=== PATIENT | male | born 1940 | race Caucasian/White ===

== ENCOUNTER 2016-08-30 08:00 | Outpatient (CLI) | payer MEDICARE ==
[2016-08-30 19:22] LABS: PSA FREE 0.401 ng/mL (0.16-2.81)
[2016-08-30 19:23] LABS: PSA TOTAL 1.514 ng/mL (0.000-2.000)
== END 2016-08-30 23:59 ==
LOC: LAB.R 08:00
PROVIDERS: ATTEND Internal Medicine
DX: R97.20 Elevated prostate specific antigen [PSA] (principal)
CPT/HCPCS: 84154

== ENCOUNTER 2016-10-13 08:39 | Outpatient (CLI) | payer MEDICARE ==
[2016-10-13 12:54] LABS: BASOPHILS # (AUTO) 0.1 10^3/uL (0.0-0.1); BASOPHILS % (AUTO) 0.8 %; EOSINOPHILS # (AUTO) 0.2 10^3/uL (0.0-0.7); EOSINOPHILS % (AUTO) 3.2 %; HCT - HEMATOCRIT 41.3 % (42.0-52.0); HGB - HEMOGLOBIN 13.8 g/dL (14.0-18.0); LYMPHOCYTES # (AUTO) 1.4 10^3/uL (1.5-3.5); LYMPHOCYTES % (AUTO) 22.5 %; MEAN CORPUSCULAR HEMOGLOBIN 32.2 pg (27.0-31.0); MEAN CORPUSCULAR HGB CONC 33.4 g/dL (32.0-36.0); MEAN CORPUSCULAR VOLUME 96.4 fL (80.0-94.0); MEAN PLATELET VOLUME 12.4 fL (7.4-11.4); MONOCYTES # (AUTO) 0.5 10^3/uL (0.0-1.0); MONOCYTES % (AUTO) 8.5 %; NEUTROPHILS # (AUTO) 4.1 10^3/uL (1.5-6.6); NUCLEATED RED BLOOD CELLS AUTO 0.1 /100WBC; RED BLOOD COUNT 4.28 10^6/uL (4.70-6.10); RED CELL DISTRIBUTION WIDTH 12.7 % (12.0-15.0); UNCORRECTED WHITE BLOOD COUNT 6.3 x10^3/uL; WHITE BLOOD COUNT 6.3 x10^3/uL (4.8-10.8)
[2016-10-13 13:12] LABS: ALBUMIN/GLOBULIN RATIO 1.7 (1.0-2.2); BILIRUBIN,TOTAL 0.6 mg/dL (0.2-1.0); BUN - BLOOD UREA NITROGEN 23 mg/dL (6-20); CALCIUM 9.3 mg/dL (8.5-10.3); CARBON DIOXIDE - CO2 31 mmol/L (21-32); CHLORIDE 101 mmol/L (101-111); CHOL/HDL RATIO 2.5 (<5.0); CHOLESTEROL 152 mg/dL; CREATININE 0.9 mg/dL (0.6-1.2); GFR - MDRD 82 (>89); GLUCOSE 98 mg/dL (70-100); HDL CHOLESTEROL 62 mg/dL; LDL/HDL RATIO 1.1 (<3.6); POTASSIUM 4.2 mmol/L (3.5-5.0); SODIUM 139 mmol/L (135-145); TOTAL PROTEIN 6.7 g/dL (6.7-8.2); TRIGLYCERIDES 103 mg/dL; VLDL CHOLESTEROL 21 mg/dL
[2016-10-13 13:17] LABS: PSA FREE 0.35 ng/mL (0.16-2.81)
[2016-10-13 13:18] LABS: PSA TOTAL 1.71 ng/mL (0.000-2.000)
== END 2016-10-13 08:40 | disposition home or self-care (01) ==
LOC: LAB.R 08:39
PROVIDERS: ATTEND Internal Medicine
DX: E78.2 Mixed hyperlipidemia (principal); I25.10 Atherosclerotic heart disease of native coronary artery without angina pectoris; R97.20 Elevated prostate specific antigen [PSA]; Z79.899 Other long term (current) drug therapy
CPT/HCPCS: 80053; 80061; 84154; 84443; 85025

== ENCOUNTER 2017-01-09 14:53 | Outpatient (CLI) | payer MEDICARE | END 2017-01-09 14:54 | disposition home or self-care (01) | LOC: SC 14:53 | PROVIDERS: ATTEND Internal Medicine Pulmonary Disease | DX: G47.00 Insomnia, unspecified (principal); R53.83 Other fatigue | CPT/HCPCS: 99203; G0463; 99212 ==

== ENCOUNTER 2017-02-17 22:25 | Outpatient (CLI) | payer MEDICARE | END 2017-02-17 22:26 | disposition home or self-care (01) | LOC: SC 22:25 | PROVIDERS: ATTEND Internal Medicine Pulmonary Disease | DX: G47.61 Periodic limb movement disorder (principal) | CPT/HCPCS: 95810 ==

== ENCOUNTER 2017-03-09 10:26 | Outpatient (CLI) | payer MEDICARE | END 2017-03-09 10:27 | disposition home or self-care (01) | LOC: SC 10:26 | PROVIDERS: ATTEND Specialist | DX: G47.61 Periodic limb movement disorder (principal) | CPT/HCPCS: 99214; G0463; 99212 ==

== ENCOUNTER 2017-10-17 08:05 | Outpatient (CLI) | payer MEDICARE ==
[2017-10-17 11:01] LABS: BASOPHILS % (AUTO) 0.7 %; EOSINOPHILS # (AUTO) 0.3 10^3/uL (0.0-0.7); EOSINOPHILS % (AUTO) 3.6 %; HGB - HEMOGLOBIN 13.3 g/dL (14.0-18.0); LYMPHOCYTES # (AUTO) 1.7 10^3/uL (1.5-3.5); LYMPHOCYTES % (AUTO) 23.5 %; MEAN CORPUSCULAR HEMOGLOBIN 32.6 pg (27.0-31.0); MEAN CORPUSCULAR HGB CONC 32.7 g/dL (32.0-36.0); MEAN CORPUSCULAR VOLUME 99.5 fL (80.0-94.0); MEAN PLATELET VOLUME 11.9 fL (7.4-11.4); MONOCYTES # (AUTO) 0.6 10^3/uL (0.0-1.0); MONOCYTES % (AUTO) 8.6 %; NEUTROPHILS # (AUTO) 4.5 10^3/uL (1.5-6.6); NEUTROPHILS % (AUTO) 63.6 %; PLT - PLATELET COUNT 163 10^3/uL (130-450); RED BLOOD COUNT 4.09 10^6/uL (4.70-6.10); RED CELL DISTRIBUTION WIDTH 12.9 % (12.0-15.0); WHITE BLOOD COUNT 7.1 x10^3/uL (4.8-10.8)
[2017-10-17 11:15] LABS: ALBUMIN 3.8 g/dL (3.2-5.5); ALBUMIN/GLOBULIN RATIO 1.3 (1.0-2.2); ALKALINE PHOSPHATASE 53 IU/L (42-121); ALT ALANINE AMINOTRANSFERASE 16 IU/L (10-60); AST ASPARTATE AMINOTRANSFERASE 17 IU/L (10-42); BILIRUBIN,TOTAL 0.5 mg/dL (0.2-1.0); BUN - BLOOD UREA NITROGEN 34 mg/dL (6-20); CARBON DIOXIDE - CO2 30 mmol/L (21-32); CHLORIDE 101 mmol/L (101-111); CHOL/HDL RATIO 2.1 (<5.0); CHOLESTEROL 150 mg/dL; GFR - MDRD 73 (>89); GLUCOSE 100 mg/dL (70-100); HDL CHOLESTEROL 70 mg/dL; LDL CHOLESTEROL,CALCULATED 65 mg/dL; LDL/HDL RATIO 0.9 (<3.6); SODIUM 137 mmol/L (135-145); TOTAL PROTEIN 6.7 g/dL (6.7-8.2); VLDL CHOLESTEROL 15 mg/dL
== END 2017-10-17 08:06 | disposition home or self-care (01) ==
LOC: LAB.R 08:05
PROVIDERS: ATTEND Internal Medicine
DX: K21.9 Gastro-esophageal reflux disease without esophagitis (principal); E53.8 Deficiency of other specified B group vitamins; I25.10 Atherosclerotic heart disease of native coronary artery without angina pectoris
CPT/HCPCS: 80053; 80061; 83721; 85025

== ENCOUNTER 2017-11-27 11:40 | Outpatient (CLI) | payer MEDICARE ==
[2017-11-27 19:08] LABS: MEAN RETIC VALUE 117.3; RED BLOOD COUNT 4.18 10^6/uL (4.70-6.10)
[2017-11-27 19:50] LABS: FERRITIN 34.7 ng/mL (23.9-336.2)
== END 2017-11-27 11:41 | disposition home or self-care (01) ==
LOC: LAB.N 11:40
PROVIDERS: ATTEND Internal Medicine
DX: N40.0 Benign prostatic hyperplasia without lower urinary tract symptoms (principal); D64.9 Anemia, unspecified
CPT/HCPCS: 36415; 82607; 82728; 83010; 84153; 85044; 86880

== ENCOUNTER 2018-01-22 10:08 | Day surgery (SDC) | payer MEDICARE ==
[2018-01-22] MEDS ORDERED: LACTATED RINGERS 1,000 ML IV ONE (10:25)
[2018-01-22] MEDS ORDERED: MIDAZOLAM 2 MG/2 ML VIAL IVP ONE (11:53)
[2018-01-22] MEDS ORDERED: fentaNYL 250 MCG/5 ML VIAL IVP ONE (11:53)
[2018-01-22 13:44] VITALS: BP 129/60
== END 2018-01-22 10:09 | disposition home or self-care (01) ==
LOC: SDS 10:08
PROVIDERS: ATTEND Surgery
PROC: 0DBH8ZZ Excision of Cecum, Via Natural or Artificial Opening Endoscopic (ICD-10-PCS; principal; 2018-01-22 11:45)
DX: D64.9 Anemia, unspecified (principal); D12.0 Benign neoplasm of cecum; K57.30 Diverticulosis of large intestine without perforation or abscess without bleeding; K64.8 Other hemorrhoids; K21.9 Gastro-esophageal reflux disease without esophagitis; F17.210 Nicotine dependence, cigarettes, uncomplicated; G25.81 Restless legs syndrome; Z79.82 Long term (current) use of aspirin; Z79.899 Other long term (current) drug therapy; Z95.5 Presence of coronary angioplasty implant and graft
CPT/HCPCS: 45380; J3010; J7120

== ENCOUNTER 2018-03-13 14:12 | Outpatient (CLI) | payer MEDICARE ==
--- NOTE | 2018-03-13 14:53 | XRAY Report ---
Reason: WHEEZING Procedure Date: 03/13/2018 Accession Number: [id number] / [id number] Procedure: XR - Chest 2 View X-Ray CPT Code: 55218 FULL RESULT: EXAM: CHEST RADIOGRAPHY EXAM DATE: 03/13/2018 02:44 PM. CLINICAL HISTORY: WHEEZING. COMPARISON: None. TECHNIQUE: 2 views. FINDINGS: Lungs/Pleura: No focal opacities evident. No pleural effusion. No pneumothorax. Normal volumes. Mediastinum: The heart size is normal. There is mild to moderate aortic arch atherosclerotic calcification. Other: None. IMPRESSION: Negative for an acute cardiopulmonary abnormality. RADIA
== END 2018-03-13 14:13 | disposition home or self-care (01) ==
LOC: DI 14:12
PROVIDERS: ATTEND Physician Assistant Medical
DX: R06.2 Wheezing (principal)
CPT/HCPCS: 71046

== ENCOUNTER 2018-04-25 11:56 | Outpatient (CLI) | payer MEDICARE ==
--- NOTE | 2018-04-25 13:00 | XRAY Report ---
Reason: TOBACCO ABUSE, CONTINUOUS Procedure Date: 04/25/2018 Accession Number: [id number] / [id number] Procedure: XR - Chest 2 View X-Ray CPT Code: 85510 FULL RESULT: EXAM: CHEST RADIOGRAPHY EXAM DATE: 04/25/2018 12:27 PM. CLINICAL HISTORY: Tobacco abuse, continuous. COMPARISON: CHEST 2 VIEW 03/13/2018 2:37 PM. TECHNIQUE: 2 views. FINDINGS: Lungs/Pleura: No focal opacities evident. No pleural effusion. No pneumothorax. Normal volumes. Mediastinum: Heart and mediastinal contours are stable with mild calcifications of the aortic arch. Apparent interval enlargement of the cardiac silhouette is felt to be differences in technique. Other: None. IMPRESSION: No acute cardiopulmonary abnormality. RADIA
== END 2018-04-25 11:57 | disposition home or self-care (01) ==
LOC: DI 11:56
PROVIDERS: ATTEND Physician Assistant Medical
DX: F17.200 Nicotine dependence, unspecified, uncomplicated (principal); R06.2 Wheezing; R05 Cough
CPT/HCPCS: 71046

== ENCOUNTER 2018-04-29 12:58 | Outpatient (CLI) | payer MEDICARE ==
[2018-04-29] MEDS ORDERED: ALBUTEROL NEB 2.5 MG/3 ML INH ONE (13:30)
== END 2018-04-29 12:59 | disposition home or self-care (01) ==
LOC: RT 12:58
PROVIDERS: ATTEND Physician Assistant Medical
DX: R06.2 Wheezing (principal); F17.200 Nicotine dependence, unspecified, uncomplicated
CPT/HCPCS: 94060; 94664

== ENCOUNTER 2018-11-05 07:28 | Outpatient (CLI) | payer MEDICARE ==
[2018-11-05 08:17] LABS: ALBUMIN 3.9 g/dL (3.2-5.5); ALBUMIN/GLOBULIN RATIO 1.4 (1.0-2.2); ALKALINE PHOSPHATASE 65 IU/L (42-121); ALT ALANINE AMINOTRANSFERASE 14 IU/L (10-60); AST ASPARTATE AMINOTRANSFERASE 15 IU/L (10-42); BILIRUBIN,TOTAL 0.5 mg/dL (0.2-1.0); BUN - BLOOD UREA NITROGEN 28 mg/dL (6-20); CALCIUM 8.9 mg/dL (8.5-10.3); CARBON DIOXIDE - CO2 27 mmol/L (21-32); CHLORIDE 105 mmol/L (101-111); CHOL/HDL RATIO 2.3 (<5.0); CHOLESTEROL 136 mg/dL; GFR - MDRD 73 (>89); GLUCOSE 110 mg/dL (70-100); HDL CHOLESTEROL 59 mg/dL; LDL CHOLESTEROL,CALCULATED 66 mg/dL; LDL/HDL RATIO 1.1 (<3.6); SODIUM 142 mmol/L (135-145); TOTAL PROTEIN 6.7 g/dL (6.7-8.2); VLDL CHOLESTEROL 11 mg/dL
[2018-11-05 08:46] LABS: BASOPHILS % (AUTO) 0.6 %; EOSINOPHILS # (AUTO) 0.2 10^3/uL (0.0-0.7); EOSINOPHILS % (AUTO) 2.9 %; LYMPHOCYTES # (AUTO) 1.5 10^3/uL (1.5-3.5); MEAN CORPUSCULAR HEMOGLOBIN 31.1 pg (27.0-31.0); MEAN CORPUSCULAR HGB CONC 31.3 g/dL (32.0-36.0); MEAN CORPUSCULAR VOLUME 99.3 fL (80.0-94.0); MEAN PLATELET VOLUME 13.5 fL (7.4-11.4); MONOCYTES # (AUTO) 0.6 10^3/uL (0.0-1.0); MONOCYTES % (AUTO) 8.7 %; NEUTROPHILS # (AUTO) 4.3 10^3/uL (1.5-6.6); NEUTROPHILS % (AUTO) 64.5 %; PLT - PLATELET COUNT 168 10^3/uL (130-450); RED BLOOD COUNT 4.18 10^6/uL (4.70-6.10); RED CELL DISTRIBUTION WIDTH 12.4 % (12.0-15.0); WHITE BLOOD COUNT 6.7 x10^3/uL (4.8-10.8)
[2018-11-05 08:52] LABS: PSA FREE 0.44 ng/mL (0.16-2.81)
[2018-11-05 08:53] LABS: PSA TOTAL 2.1 ng/mL (0.000-2.000)
[2018-11-05 08:57] LABS: THYROID STIMULATING HORMONE 4.15 uIU/mL (0.34-5.60)
[2018-11-05 10:06] LABS: PLATELET ESTIMATE, MANUAL NORMAL (130-450,000) (NORMAL); PLATELET MORPHOLOGY RARE GIANT PLATELETS (NORMAL); RBC MORPHOLOGY (MULTIPLE) NORMAL APPEARANCE (NORMAL)
== END 2018-11-05 07:29 | disposition home or self-care (01) ==
LOC: LAB 07:28
PROVIDERS: ATTEND Nurse Practitioner
DX: E78.5 Hyperlipidemia, unspecified (principal); J44.9 Chronic obstructive pulmonary disease, unspecified; E53.8 Deficiency of other specified B group vitamins; N40.1 Benign prostatic hyperplasia with lower urinary tract symptoms
CPT/HCPCS: 36415; 80053; 80061; 82306; 82607; 83721; 84153; 84154; 84443; 85025

== ENCOUNTER 2019-02-08 08:48 | Outpatient (CLI) | payer MEDICARE | END 2019-02-08 08:49 | disposition home or self-care (01) | LOC: DI 08:48 | PROVIDERS: ATTEND Family Medicine | DX: J44.9 Chronic obstructive pulmonary disease, unspecified (principal); I25.10 Atherosclerotic heart disease of native coronary artery without angina pectoris | CPT/HCPCS: 93306 ==

== ENCOUNTER 2019-03-18 09:53 | Outpatient (CLI) | payer MEDICARE | END 2019-03-18 09:54 | disposition home or self-care (01) | LOC: LAB 09:53 | PROVIDERS: ATTEND Nurse Practitioner | DX: R53.83 Other fatigue (principal) | CPT/HCPCS: 36415; 82306 ==

== ENCOUNTER 2019-05-16 08:58 | Outpatient (CLI) | payer MEDICARE ==
[~2019-05-16 08:58] MED LIST: ALBUTEROL NEB 2.5 MG/3 ML INH SCH
== END 2019-05-16 08:59 | disposition home or self-care (01) ==
LOC: RT 08:58
PROVIDERS: ATTEND Nurse Practitioner
DX: J44.9 Chronic obstructive pulmonary disease, unspecified (principal)
CPT/HCPCS: 94060

== ENCOUNTER 2019-05-24 11:12 | Outpatient (CLI) | payer MEDICARE ==
--- NOTE | 2019-05-29 09:09 | XRAY Report ---
Reason: COPD Procedure Date: 05/24/2019 Accession Number: [id number] / [id number] Procedure: XR - Chest 2 View X-Ray CPT Code: 75308 Final Report FULL RESULT: EXAM: CHEST RADIOGRAPHY EXAM DATE: 05/24/2019 11:23 AM. CLINICAL HISTORY: COPD. COMPARISON: CHEST 2 VIEW 04/25/2018 12:17 PM. TECHNIQUE: 2 views. FINDINGS: The mediastinal and cardiac silhouettes are normal. The lungs are free of focal consolidation and hyperinflated. No pleural effusion or pneumothorax is seen. Degenerative changes are seen in the spine and bilateral acromioclavicular joints. There is a levoconvex thoracic curvature, unchanged. IMPRESSION: No focal consolidation. RADIA
== END 2019-05-24 11:13 | disposition home or self-care (01) ==
LOC: DI 11:12
PROVIDERS: ATTEND Nurse Practitioner
DX: J44.9 Chronic obstructive pulmonary disease, unspecified (principal)
CPT/HCPCS: 71046

== ENCOUNTER 2019-11-27 10:35 | Outpatient (CLI) | payer MEDICARE ==
[2019-11-27 18:28] LABS: BASOPHILS % (AUTO) 0.6 %; EOSINOPHILS # (AUTO) 0.2 10^3/uL (0.0-0.7); EOSINOPHILS % (AUTO) 2.1 %; HGB - HEMOGLOBIN 13.3 g/dL (14.0-18.0); LYMPHOCYTES # (AUTO) 1.5 10^3/uL (1.5-3.5); LYMPHOCYTES % (AUTO) 20.6 %; MEAN CORPUSCULAR HEMOGLOBIN 32.1 pg (27.0-31.0); MEAN CORPUSCULAR HGB CONC 31.2 g/dL (32.0-36.0); MEAN CORPUSCULAR VOLUME 102.9 fL (80.0-94.0); MEAN PLATELET VOLUME 13.7 fL (7.4-11.4); MONOCYTES # (AUTO) 0.5 10^3/uL (0.0-1.0); MONOCYTES % (AUTO) 7.5 %; NEUTROPHILS % (AUTO) 68.6 %; PLT - PLATELET COUNT 188 10^3/uL (130-450); RED BLOOD COUNT 4.14 10^6/uL (4.70-6.10); RED CELL DISTRIBUTION WIDTH 12.1 % (12.0-15.0); WHITE BLOOD COUNT 7.2 x10^3/uL (4.8-10.8)
[2019-11-27 19:02] LABS: ALBUMIN 4.1 g/dL (3.2-5.5); ALBUMIN/GLOBULIN RATIO 1.5 (1.0-2.2); ALKALINE PHOSPHATASE 61 IU/L (42-121); ALT ALANINE AMINOTRANSFERASE 20 IU/L (10-60); AST ASPARTATE AMINOTRANSFERASE 18 IU/L (10-42); BILIRUBIN,TOTAL 0.4 mg/dL (0.2-1.0); BUN - BLOOD UREA NITROGEN 23 mg/dL (6-20); CALCIUM 8.9 mg/dL (8.5-10.3); CARBON DIOXIDE - CO2 29 mmol/L (21-32); CHLORIDE 105 mmol/L (101-111); CHOL/HDL RATIO 2.4 (<5.0); CHOLESTEROL 156 mg/dL; CREATININE 0.9 mg/dL (0.6-1.2); GLUCOSE 89 mg/dL (70-100); HDL CHOLESTEROL 64 mg/dL; LDL CHOLESTEROL,CALCULATED 75 mg/dL; LDL/HDL RATIO 1.2 (<3.6); SODIUM 137 mmol/L (135-145); TOTAL PROTEIN 6.9 g/dL (6.7-8.2); VLDL CHOLESTEROL 17 mg/dL
== END 2019-11-27 23:59 | disposition home or self-care (01) ==
LOC: LAB.WCP 10:35
PROVIDERS: ATTEND Nurse Practitioner
DX: E78.5 Hyperlipidemia, unspecified (principal); J44.9 Chronic obstructive pulmonary disease, unspecified; I25.10 Atherosclerotic heart disease of native coronary artery without angina pectoris; E53.8 Deficiency of other specified B group vitamins; G47.61 Periodic limb movement disorder; K21.9 Gastro-esophageal reflux disease without esophagitis
CPT/HCPCS: 36415; 80053; 80061; 82607; 83721; 84443; 85025

== ENCOUNTER 2020-09-16 07:54 | Outpatient (CLI) | payer MEDICARE ==
[2020-09-16 12:05] LABS: BASOPHILS # (AUTO) 0.1 10^3/uL (0.0-0.1); BASOPHILS % (AUTO) 0.9 %; EOSINOPHILS # (AUTO) 0.2 10^3/uL (0.0-0.7); EOSINOPHILS % (AUTO) 2.9 %; HCT - HEMATOCRIT 41.5 % (42.0-52.0); HGB - HEMOGLOBIN 13.3 g/dL (14.0-18.0); LYMPHOCYTES # (AUTO) 1.9 10^3/uL (1.5-3.5); LYMPHOCYTES % (AUTO) 27.5 %; MEAN CORPUSCULAR HEMOGLOBIN 31.7 pg (27.0-31.0); MEAN CORPUSCULAR VOLUME 98.8 fL (80.0-94.0); MEAN PLATELET VOLUME 14.2 fL (7.4-11.4); MONOCYTES # (AUTO) 0.6 10^3/uL (0.0-1.0); MONOCYTES % (AUTO) 9.2 %; NEUTROPHILS # (AUTO) 4.2 10^3/uL (1.5-6.6); NEUTROPHILS % (AUTO) 59.2 %; PLT - PLATELET COUNT 194 10^3/uL (130-450); RED CELL DISTRIBUTION WIDTH 11.9 % (12.0-15.0)
[2020-09-16 12:28] LABS: ALBUMIN 4.1 g/dL (3.2-5.5); ALBUMIN/GLOBULIN RATIO 1.6 (1.0-2.2); ALKALINE PHOSPHATASE 57 IU/L (42-121); ALT ALANINE AMINOTRANSFERASE 12 IU/L (10-60); AST ASPARTATE AMINOTRANSFERASE 17 IU/L (10-42); BILIRUBIN,TOTAL 0.9 mg/dL (0.2-1.0); BUN - BLOOD UREA NITROGEN 31 mg/dL (6-20); CALCIUM 8.8 mg/dL (8.5-10.3); CARBON DIOXIDE - CO2 29 mmol/L (21-32); CHLORIDE 101 mmol/L (101-111); CHOL/HDL RATIO 2.6 (<5.0); CHOLESTEROL 155 mg/dL; GFR - MDRD 72 (>89); GLUCOSE 113 mg/dL (70-100); HDL CHOLESTEROL 59 mg/dL; LDL CHOLESTEROL,CALCULATED 82 mg/dL; LDL/HDL RATIO 1.4 (<3.6); POTASSIUM 4.1 mmol/L (3.5-5.0); SODIUM 139 mmol/L (135-145); TOTAL PROTEIN 6.6 g/dL (6.7-8.2); TRIGLYCERIDES 72 mg/dL; VLDL CHOLESTEROL 14 mg/dL
[2020-09-16 12:29] LABS: THYROID STIMULATING HORMONE 4.32 uIU/mL (0.34-5.60)
== END 2020-09-16 07:55 | disposition home or self-care (01) ==
LOC: LAB.N 07:54
PROVIDERS: ATTEND Internal Medicine
DX: E78.5 Hyperlipidemia, unspecified (principal); F32.9 Major depressive disorder, single episode, unspecified; I25.10 Atherosclerotic heart disease of native coronary artery without angina pectoris
CPT/HCPCS: 36415; 80053; 80061; 83721; 84443; 85025

== ENCOUNTER 2021-11-10 08:24 | Outpatient (CLI) | payer MEDICARE ==
[2021-11-10 12:00] LABS: BASOPHILS # (AUTO) 0.1 10^3/uL (0.0-0.1); BASOPHILS % (AUTO) 0.7 %; EOSINOPHILS # (AUTO) 0.2 10^3/uL (0.0-0.7); EOSINOPHILS % (AUTO) 3.3 %; HCT - HEMATOCRIT 41.8 % (42.0-52.0); HGB - HEMOGLOBIN 13.7 g/dL (14.0-18.0); LYMPHOCYTES # (AUTO) 1.6 10^3/uL (1.5-3.5); LYMPHOCYTES % (AUTO) 22.4 %; MEAN CORPUSCULAR HEMOGLOBIN 32.4 pg (27.0-31.0); MEAN CORPUSCULAR HGB CONC 32.8 g/dL (32.0-36.0); MEAN CORPUSCULAR VOLUME 98.8 fL (80.0-94.0); MEAN PLATELET VOLUME 13.8 fL (7.4-11.4); MONOCYTES # (AUTO) 0.7 10^3/uL (0.0-1.0); MONOCYTES % (AUTO) 9.4 %; NEUTROPHILS # (AUTO) 4.7 10^3/uL (1.5-6.6); NEUTROPHILS % (AUTO) 63.8 %; PLT - PLATELET COUNT 208 10^3/uL (130-450); RED BLOOD COUNT 4.23 10^6/uL (4.70-6.10); RED CELL DISTRIBUTION WIDTH 12.1 % (12.0-15.0); WHITE BLOOD COUNT 7.3 x10^3/uL (4.8-10.8)
[2021-11-10 12:34] LABS: ALBUMIN 3.8 g/dL (3.2-5.5); ALBUMIN/GLOBULIN RATIO 1.4 (1.0-2.2); ALKALINE PHOSPHATASE 65 IU/L (42-121); ALT ALANINE AMINOTRANSFERASE 11 IU/L (10-60); AST ASPARTATE AMINOTRANSFERASE 16 IU/L (10-42); BILIRUBIN,TOTAL 0.6 mg/dL (0.2-1.0); BUN - BLOOD UREA NITROGEN 26 mg/dL (6-20); CALCIUM 9.4 mg/dL (8.5-10.3); CARBON DIOXIDE - CO2 31 mmol/L (21-32); CHLORIDE 104 mmol/L (101-111); CHOL/HDL RATIO 2.4 (<5.0); CHOLESTEROL 146 mg/dL; GFR - MDRD 72 (>89); GLUCOSE 115 mg/dL (70-100); HDL CHOLESTEROL 62 mg/dL; LDL CHOLESTEROL,CALCULATED 72 mg/dL; LDL/HDL RATIO 1.2 (<3.6); POTASSIUM 4.4 mmol/L (3.5-5.0); SODIUM 139 mmol/L (135-145); TOTAL PROTEIN 6.6 g/dL (6.7-8.2); TRIGLYCERIDES 60 mg/dL; VLDL CHOLESTEROL 12 mg/dL
[2021-11-10 12:44] LABS: THYROID STIMULATING HORMONE 4.31 uIU/mL (0.34-5.60)
== END 2021-11-10 08:25 | disposition home or self-care (01) ==
LOC: LAB.N 08:24
PROVIDERS: ATTEND Internal Medicine
DX: E78.5 Hyperlipidemia, unspecified (principal); E53.8 Deficiency of other specified B group vitamins; I25.2 Old myocardial infarction; F32.A Depression, unspecified
CPT/HCPCS: 36415; 80053; 80061; 82607; 83721; 84443; 85025

== ENCOUNTER 2022-09-28 07:33 | Outpatient (CLI) | payer MEDICARE ==
[2022-09-28 11:51] LABS: ALBUMIN 3.9 g/dL (3.2-5.5); ALBUMIN/GLOBULIN RATIO 1.4 (1.0-2.2); ALKALINE PHOSPHATASE 59 IU/L (42-121); ALT ALANINE AMINOTRANSFERASE 13 IU/L (10-60); AST ASPARTATE AMINOTRANSFERASE 14 IU/L (10-42); BASOPHILS # (AUTO) 0.1 10^3/uL (0.0-0.1); BASOPHILS % (AUTO) 0.8 %; BILIRUBIN,TOTAL 0.7 mg/dL (0.2-1.0); BUN - BLOOD UREA NITROGEN 30 mg/dL (6-20); CALCIUM 8.7 mg/dL (8.5-10.3); CARBON DIOXIDE - CO2 29 mmol/L (21-32); CHLORIDE 106 mmol/L (101-111); CHOL/HDL RATIO 2.3 (<5.0); CHOLESTEROL 148 mg/dL; CREATININE 0.8 mg/dL (0.6-1.2); EOSINOPHILS # (AUTO) 0.2 10^3/uL (0.0-0.7); EOSINOPHILS % (AUTO) 2.4 %; GFR - MDRD 93 (>89); GLUCOSE 120 mg/dL (70-100); HCT - HEMATOCRIT 39.5 % (42.0-52.0); HDL CHOLESTEROL 63 mg/dL; HGB - HEMOGLOBIN 12.6 g/dL (14.0-18.0); LDL CHOLESTEROL,CALCULATED 69 mg/dL; LDL/HDL RATIO 1.1 (<3.6); LYMPHOCYTES # (AUTO) 1.6 10^3/uL (1.5-3.5); LYMPHOCYTES % (AUTO) 22.8 %; MEAN CORPUSCULAR HEMOGLOBIN 31.7 pg (27.0-31.0); MEAN CORPUSCULAR HGB CONC 31.9 g/dL (32.0-36.0); MEAN CORPUSCULAR VOLUME 99.2 fL (80.0-94.0); MEAN PLATELET VOLUME 13.8 fL (7.4-11.4); MONOCYTES # (AUTO) 0.6 10^3/uL (0.0-1.0); MONOCYTES % (AUTO) 8.9 %; NEUTROPHILS # (AUTO) 4.6 10^3/uL (1.5-6.6); NEUTROPHILS % (AUTO) 64.7 %; PLT - PLATELET COUNT 191 10^3/uL (130-450); POTASSIUM 4.1 mmol/L (3.5-5.0); RED BLOOD COUNT 3.98 10^6/uL (4.70-6.10); RED CELL DISTRIBUTION WIDTH 12.4 % (12.0-15.0); SODIUM 140 mmol/L (135-145); TOTAL PROTEIN 6.7 g/dL (6.7-8.2); TRIGLYCERIDES 78 mg/dL; VLDL CHOLESTEROL 16 mg/dL; WHITE BLOOD COUNT 7.1 x10^3/uL (4.8-10.8)
[2022-09-28 12:15] LABS: THYROID STIMULATING HORMONE 3.31 uIU/mL (0.34-5.60)
== END 2022-09-28 07:34 | disposition home or self-care (01) ==
LOC: LAB.N 07:33
PROVIDERS: ATTEND Internal Medicine
DX: E78.5 Hyperlipidemia, unspecified (principal); E53.8 Deficiency of other specified B group vitamins; F32.A Depression, unspecified
CPT/HCPCS: 36415; 80053; 80061; 82607; 83721; 84443; 85025

== ENCOUNTER 2023-02-26 10:53 | Emergency (ER) | payer MEDICARE ==
[2023-02-26] MEDS ORDERED: IPRATROPIUM/ALBUTEROL 3 ML NEB INH STA (11:46)
--- NOTE | 2023-02-26 11:54 | XRAY Report ---
PROCEDURE: Chest 1 View X-Ray INDICATIONS: SOA TECHNIQUE: One view of the chest was acquired. COMPARISON: 05/24/2019 FINDINGS: Surgical changes and devices: None. Lungs and pleura: No pleural effusions or pneumothorax. Lungs are clear. Mediastinum: Mediastinal contours appear normal. Heart size is normal. Bones and chest wall: No suspicious bony lesions. Overlying soft tissues appear unremarkable. IMPRESSION: No acute cardiopulmonary process. Reviewed by: Tosha Turk MD on 02/26/2023 11:53 AM [facility] Approved by: Tosha Turk MD on 02/26/2023 11:53 AM [facility] Station ID: [id number]
--- NOTE | 2023-02-26 12:05 | ED Physician Documentation ---
PD HPI URI - Stated complaint Stated Complaint: SOA,COUGH - Chief complaint Chief Complaint: Resp - History obtained from History obtained from: Patient - Additional information Additional information: Patient is an 82-year-old male presenting for evaluation of feeling short of air. He states that since Monday he has had a nonproductive cough. He has been using his albuterol inhaler with some improvement but feels more tight today. No fever. No chest pain. He does report smoking cigarettes but has cut down Recently. No known sick contacts. Denies abdominal symptoms, leg swelling or pain. Review of Systems Constitutional: denies: Fever Cardiac: denies: Chest pain / pressure Respiratory: reports: Dyspnea, Cough GI: denies: Abdominal Pain, Vomiting Musculoskeletal: denies: Extremity swelling PD PAST MEDICAL HISTORY - Past Medical History Cardiovascular: Hypertension, High cholesterol, [place], Other Respiratory: None Endocrine/Autoimmune: None GI: GERD : Benign prostate hypertrophy HEENT: None Psych: Depression Musculoskeletal: None - Past Surgical History Past Surgical History: Yes Cardiovascular: Cardiac catheterization HEENT: Rhinoplasty - Present Medications Home Medications: Ambulatory Orders Medication Instructions Recorded Confirmed Aspirin [Aspirin EC] 81 mg PO DAILY 01/19/18 02/26/23 Citalopram Hydrobromide [Celexa] 40 mg PO DAILY 01/19/18 02/26/23 Finasteride 5 mg PO DAILY 01/19/18 02/26/23 Metoprolol Succinate 50 mg PO BID 01/19/18 02/26/23 Nitroglycerin [Nitrostat] 0.4 mg SL Q5MIN PRN MDD 3 tabs 01/19/18 02/26/23 Omeprazole 20 mg PO DAILY 01/19/18 02/26/23 Pravastatin Sodium [Pravachol] 80 mg PO DAILY 01/19/18 02/26/23 Albuterol Sulf [Ventolin Hfa 1 - 2 puffs INH Q4HR PRN 02/26/23 02/26/23 Inhaler] Albuterol Sulf [Ventolin Hfa 1 - 2 puffs INH Q4HR PRN #1 each 02/26/23 Inhaler] Beclomethasone 80 Mcg [Qvar 80] 1 puffs INH BID 02/26/23 02/26/23 Benzonatate [Tessalon] 200 mg PO QID PRN #20 cap 02/26/23 Carbidopa [Lodosyn] 100 mg PO DAILY 02/26/23 02/26/23 Tiotropium Br/Olodaterol HCl 2 puffs IH BID 02/26/23 02/26/23 [Stiolto Respimat Inhal [place]] predniSONE [Deltasone] 60 mg PO DAILY 4 Days #12 tablet 02/26/23 - Allergies Allergies/Adverse Reactions: Allergies Allergy/AdvReac Type Severity Reaction Status Date / Time LAZ Inhibitors Allergy Unknown Verified 02/26/23 11:03 - Social History Does the pt smoke?: Yes Smoking Status: Current some day smoker Does the pt drink ETOH?: No Does the pt have substance abuse?: No PD ED PE NORMAL - General General: Alert and oriented X 3, No acute distress, Well developed/nourished - HEENT HEENT: Atraumatic, Moist mucous membranes, Pharynx benign - Neck Neck: Supple, no meningeal sign - Cardiac Cardiac: RRR, No murmur, Strong equal pulses - Respiratory Respiratory: No respiratory distress, Other (Expiratory wheezing bilaterally) - Abdomen Abdomen: Soft, Non tender, Non distended - Derm Derm: Warm and dry - Extremities Extremities: No edema, No calf tenderness / cord - Neuro Neuro: Normal speech Results - Vitals Vitals: Vital Signs - 24 hr 02/26/23 02/26/23 02/26/23 10:58 12:10 13:30 Temperature 37.1 C 37.2 C Heart Rate 81 102 H 96 Respiratory 18 28 H 20 Rate Blood Pressure 132/58 H 146/61 H O2 Saturation 97 96 Oxygen O2 Source Room air - EKG (time done) 1239 EKG releavant findings:: EKG personally interpreted by author of this note. Relevant findings are: Rate 95, NSR, no STEMI, RBBB - Labs Labs: Laboratory Tests 02/26/23 11:35 Nasal Adenovirus (PCR) NOT DETECTED Nasal B. parapertussis DNA (PCR) NOT DETECTED Nasal Coronavir 229E PCR NOT DETECTED Nasal Coronavir HKU1 PCR NOT DETECTED Nasal Coronavir NL63 PCR NOT DETECTED Nasal Coronavir OC43 PCR NOT DETECTED Nasal Enterovir/Rhinovir PCR NOT DETECTED Nasal Influenza B PCR NOT DETECTED Nasal Influenza A PCR NOT DETECTED Nasal Parainfluen 1 PCR NOT DETECTED Nasal Parainfluen 2 PCR NOT DETECTED Nasal Parainfluen 3 PCR NOT DETECTED Nasal Parainfluen 4 PCR NOT DETECTED Nasal RSV (PCR) NOT DETECTED Nasal B.pertussis DNA PCR NOT DETECTED Nasal C.pneumoniae (PCR) NOT DETECTED Santana Human Metapneumo PCR NOT DETECTED Nasal M.pneumoniae (PCR) NOT DETECTED Nasal SARS-CoV-2 (PCR) NOT DETECTED PD Medical Decision Making - ED course Complexity details: reviewed results, re-evaluated patient, d/w patient, d/w family ED course: Patient is an 82-year-old male with a history of asthma and smoking history. Presenting for evaluation of shortness of air for the past 2 days. Vital signs are stable but is wheezing on exam. Chest x-ray which I reviewed is negative for pneumonia. EKG is nonischemic and patient is not having chest pain. He is feeling significantly better after DuoNeb treatment. Patient was also started on prednisone. Symptoms are likely viral in nature. Respiratory swab is negative. Patient counseled on continued supportive care as well as plan for course of prednisone. He has an albuterol inhaler at home. He is counseled on concerning symptoms to return for. Departure - Departure Disposition: Home, Self Care Clinical Impression: Bronchitis Condition: Stable Instructions: ED Bronchitis Asthmatic Prescriptions: Albuterol Sulf [Ventolin Hfa Inhaler] 1 - 2 puffs INH Q4HR PRN #1 each PRN Reason: Shortness Of Air/Wheezing predniSONE [Deltasone] 60 mg PO DAILY 4 Days #12 tablet Benzonatate [Tessalon] 200 mg PO QID PRN #20 cap PRN Reason: Cough Comments: You have been treated for bronchitis. I am starting you on a course of steroids and recommend you continue to use your inhaler. Your chest x-ray does not show pneumonia. Your respiratory swab was negative for the tested viruses. I have sent your prescriptions to [facility] in [place]. Return to the ER with any worsening symptoms. Forms: PCP List Discharge Date/Time: 02/26/23 13:34
[2023-02-26 12:40] LABS: B. PARAPERTUSSIS- RESP PCR PAN NOT DETECTED; B. PERTUSSIS- RESP PCR PANEL NOT DETECTED; C. PNEUMONIAE- RESP PCR PANEL NOT DETECTED; CORONAVIRUS 229E-RESP PCR NOT DETECTED; CORONAVIRUS HKU1-RESP PCR NOT DETECTED; CORONAVIRUS NL63-RESP PCR NOT DETECTED; CORONAVIRUS OC43-RESP PCR NOT DETECTED; HUMAN METAPNEUMOVIRUS NOT DETECTED; INFLUENZA A- RESP PCR PANEL NOT DETECTED; INFLUENZA B - RESP PCR PANEL NOT DETECTED; M. PNEUMONIAE- RESP PCR PANEL NOT DETECTED; PARAINFLUENZA VIRUS 1 NOT DETECTED; PARAINFLUENZA VIRUS 2 NOT DETECTED; PARAINFLUENZA VIRUS 3 NOT DETECTED; PARAINFLUENZA VIRUS 4 NOT DETECTED; RHINOVIRUS/ENTEROVIRUS NOT DETECTED; RSV- RESP PCR PANEL NOT DETECTED; SARS-CoV-2 -RESP PCR PANEL NOT DETECTED
[2023-02-26] MEDS ORDERED: predniSONE 20 MG TABLET PO STA (12:58)
[2023-02-26 13:38] VITALS: BP 146/61; O2SAT 96
== END 2023-02-26 13:34 | disposition home or self-care (01) ==
LOC: ED 10:53
DX: J40 Bronchitis, not specified as acute or chronic (principal); I10 Essential (primary) hypertension; E78.00 Pure hypercholesterolemia, unspecified; F17.210 Nicotine dependence, cigarettes, uncomplicated; Z79.82 Long term (current) use of aspirin; Z79.899 Other long term (current) drug therapy; Z20.822 Contact with and (suspected) exposure to COVID-19
CPT/HCPCS: 71045; 87633; 93005; 94640; 94664; 99284; J7512

== ENCOUNTER 2023-03-15 09:24 | Outpatient (CLI) | payer MEDICARE ==
[2023-03-15 12:12] LABS: BASOPHILS # (AUTO) 0.1 10^3/uL (0.0-0.1); BASOPHILS % (AUTO) 0.7 %; EOSINOPHILS # (AUTO) 0.2 10^3/uL (0.0-0.7); EOSINOPHILS % (AUTO) 2.4 %; HCT - HEMATOCRIT 40.9 % (42.0-52.0); HGB - HEMOGLOBIN 12.5 g/dL (14.0-18.0); LYMPHOCYTES # (AUTO) 1.6 10^3/uL (1.5-3.5); LYMPHOCYTES % (AUTO) 18.6 %; MEAN CORPUSCULAR HGB CONC 30.6 g/dL (32.0-36.0); MEAN CORPUSCULAR VOLUME 101.5 fL (80.0-94.0); MEAN PLATELET VOLUME 12.5 fL (7.4-11.4); MONOCYTES # (AUTO) 0.6 10^3/uL (0.0-1.0); MONOCYTES % (AUTO) 7.4 %; NEUTROPHILS # (AUTO) 5.9 10^3/uL (1.5-6.6); NEUTROPHILS % (AUTO) 70.1 %; PLT - PLATELET COUNT 275 10^3/uL (130-450); RED BLOOD COUNT 4.03 10^6/uL (4.70-6.10); RED CELL DISTRIBUTION WIDTH 12.2 % (12.0-15.0); WHITE BLOOD COUNT 8.4 x10^3/uL (4.8-10.8)
[2023-03-15 12:31] LABS: ALBUMIN 3.8 g/dL (3.2-5.5); ALBUMIN/GLOBULIN RATIO 1.5 (1.0-2.2); ALKALINE PHOSPHATASE 68 IU/L (42-121); ALT ALANINE AMINOTRANSFERASE 17 IU/L (10-60); AST ASPARTATE AMINOTRANSFERASE 13 IU/L (10-42); BILIRUBIN,TOTAL 0.5 mg/dL (0.2-1.0); BUN - BLOOD UREA NITROGEN 29 mg/dL (6-20); CALCIUM 9.4 mg/dL (8.5-10.3); CARBON DIOXIDE - CO2 28 mmol/L (21-32); CHLORIDE 106 mmol/L (101-111); CHOL/HDL RATIO 2.3 (<5.0); CHOLESTEROL 143 mg/dL; CREATININE 0.9 mg/dL (0.6-1.3); GFR - MDRD 81 (>89); GLUCOSE 115 mg/dL (74-104); HDL CHOLESTEROL 62 mg/dL; LDL CHOLESTEROL,CALCULATED 68 mg/dL; LDL/HDL RATIO 1.1 (<3.6); POTASSIUM 4.4 mmol/L (3.5-4.5); SODIUM 141 mmol/L (135-145); TOTAL PROTEIN 6.4 g/dL (6.4-8.9); TRIGLYCERIDES 65 mg/dL (48-352); VLDL CHOLESTEROL 13 mg/dL
[2023-03-15 12:42] LABS: THYROID STIMULATING HORMONE 2.81 uIU/mL (0.34-5.60)
== END 2023-03-15 09:25 | disposition home or self-care (01) ==
LOC: LAB.N 09:24
PROVIDERS: ATTEND Internal Medicine
DX: E78.5 Hyperlipidemia, unspecified (principal); E53.8 Deficiency of other specified B group vitamins; G47.61 Periodic limb movement disorder; I25.2 Old myocardial infarction
CPT/HCPCS: 36415; 80053; 80061; 82607; 83721; 84443; 85025

== ENCOUNTER 2023-09-29 11:16 | Emergency (ER) | payer MEDICARE ==
[2023-09-29 11:29] VITALS: O2SAT 99
--- NOTE | 2023-09-29 11:45 | XRAY Report ---
PROCEDURE: Chest 1V INDICATIONS: Chest pain TECHNIQUE: One view of the chest was acquired. COMPARISON: Chest x-ray 02/26/2023 FINDINGS: Surgical changes and devices: None. Lungs and pleura: No pleural effusions or pneumothorax. Lungs are clear. Mediastinum: Mediastinal contours appear normal. Heart size is normal. Bones and chest wall: No suspicious bony lesions. Overlying soft tissues appear unremarkable. IMPRESSION: No acute cardiopulmonary process. Reviewed by: Karla Adkins MD on 09/29/2023 11:43 AM PDT Approved by: Karla Adkins MD on 09/29/2023 11:43 AM PDT Station ID: [id number]
[2023-09-29 11:53] LABS: BASOPHILS # (AUTO) 0.1 10^3/uL (0.0-0.1); BASOPHILS % (AUTO) 0.7 %; EOSINOPHILS # (AUTO) 0.1 10^3/uL (0.0-0.7); EOSINOPHILS % (AUTO) 1.8 %; HCT - HEMATOCRIT 39.7 % (42.0-52.0); HGB - HEMOGLOBIN 12.5 g/dL (14.0-18.0); LYMPHOCYTES # (AUTO) 1.3 10^3/uL (1.5-3.5); LYMPHOCYTES % (AUTO) 17.6 %; MEAN CORPUSCULAR HEMOGLOBIN 31.4 pg (27.0-31.0); MEAN CORPUSCULAR HGB CONC 31.5 g/dL (32.0-36.0); MEAN CORPUSCULAR VOLUME 99.7 fL (80.0-94.0); MEAN PLATELET VOLUME 12.8 fL (7.4-11.4); MONOCYTES # (AUTO) 0.6 10^3/uL (0.0-1.0); MONOCYTES % (AUTO) 8.6 %; NEUTROPHILS # (AUTO) 5.1 10^3/uL (1.5-6.6); PLT - PLATELET COUNT 180 10^3/uL (130-450); RED BLOOD COUNT 3.98 10^6/uL (4.70-6.10); RED CELL DISTRIBUTION WIDTH 12.6 % (12.0-15.0); WHITE BLOOD COUNT 7.2 x10^3/uL (4.8-10.8)
[2023-09-29 12:04] LABS: ALBUMIN/GLOBULIN RATIO 1.7 (1.0-2.2); ALKALINE PHOSPHATASE 56 IU/L (42-121); ALT ALANINE AMINOTRANSFERASE 10 IU/L (10-60); AST ASPARTATE AMINOTRANSFERASE 10 IU/L (10-42); BILIRUBIN,TOTAL 0.4 mg/dL (0.2-1.0); BUN - BLOOD UREA NITROGEN 28 mg/dL (6-20); CALCIUM 9.6 mg/dL (8.5-10.3); CARBON DIOXIDE - CO2 30 mmol/L (21-32); CHLORIDE 108 mmol/L (101-111); CREATININE 0.9 mg/dL (0.6-1.3); GFR - MDRD 81 (>89); GLUCOSE 80 mg/dL (74-104); POTASSIUM 4.1 mmol/L (3.5-4.5); SODIUM 141 mmol/L (135-145); TOTAL PROTEIN 6.3 g/dL (6.4-8.9)
[2023-09-29 12:07] LABS: LIPASE < 10 U/L (11-82)
[2023-09-29 12:11] LABS: TROPONIN I HIGH SENSITIVITY 8.1 ng/L (2.3-19.7)
--- NOTE | 2023-09-29 12:58 | ED Physician Documentation ---
PD HPI CHEST PAIN - Stated complaint Stated Complaint: CHEST TIGHTNESS,CHEST PX - Chief complaint Chief Complaint: Cardiac - History obtained from History obtained from: Patient - Additional information Additional information: 83-year-old gentleman with history of coronary disease with [place] x 1 in the early with stenting to the left AD. No cardiac events since then. Still maintained on beta-blockers and aspirin. Last night after heavy days work he developed about 30 minutes of chest tightness that went away with nitroglycerin. He was not short of breath, nauseous or dizzy or sweaty with it. He has had no pain since. PD PAST MEDICAL HISTORY - Past Medical History Past Medical History: Yes Cardiovascular: Hypertension, High cholesterol, [place], Other Respiratory: None Endocrine/Autoimmune: None GI: GERD : Benign prostate hypertrophy HEENT: None Psych: Depression Musculoskeletal: None - Past Surgical History Past Surgical History: Yes Cardiovascular: Cardiac catheterization HEENT: Rhinoplasty - Present Medications Home Medications: Ambulatory Orders Medication Instructions Recorded Confirmed Aspirin [Aspirin EC] 81 mg PO DAILY 01/19/18 02/26/23 Citalopram Hydrobromide [Celexa] 40 mg PO DAILY 01/19/18 02/26/23 Finasteride 5 mg PO DAILY 01/19/18 02/26/23 Metoprolol Succinate 50 mg PO BID 01/19/18 02/26/23 Nitroglycerin [Nitrostat] 0.4 mg SL Q5MIN PRN MDD 3 tabs 01/19/18 02/26/23 Omeprazole 20 mg PO DAILY 01/19/18 02/26/23 Pravastatin Sodium [Pravachol] 80 mg PO DAILY 01/19/18 02/26/23 Albuterol Sulf [Ventolin Hfa 1 - 2 puffs INH Q4HR PRN 02/26/23 02/26/23 Inhaler] Albuterol Sulf [Ventolin Hfa 1 - 2 puffs INH Q4HR PRN #1 each 02/26/23 Inhaler] Beclomethasone 80 Mcg [Qvar 80] 1 puffs INH BID 02/26/23 02/26/23 Benzonatate [Tessalon] 200 mg PO QID PRN #20 cap 02/26/23 Carbidopa [Lodosyn] 100 mg PO DAILY 02/26/23 02/26/23 Tiotropium Br/Olodaterol HCl 2 puffs IH BID 02/26/23 02/26/23 [Stiolto Respimat Inhal [place]] predniSONE [Deltasone] 60 mg PO DAILY 4 Days #12 tablet 02/26/23 Nitroglycerin [Nitrostat] 0.4 mg SL Q5MIN PRN #1 tab 09/29/23 - Allergies Allergies/Adverse Reactions: Allergies Allergy/AdvReac Type Severity Reaction Status Date / Time LAZ Inhibitors Allergy Unknown Verified 09/29/23 11:24 - Social History Does the pt smoke?: Yes Smoking Status: Current every day smoker Does the pt drink ETOH?: No Does the pt have substance abuse?: No - Immunizations Immunizations are current?: Yes PD ED PE NORMAL - Vitals Vital signs reviewed: Yes - General General: Alert and oriented X 3, No acute distress - Cardiac Cardiac: RRR, No murmur - Respiratory Respiratory: No respiratory distress, Clear bilaterally - Abdomen Abdomen: Non tender - Neuro Neuro: Alert and oriented X 3 Results - Vitals Vitals: Vital Signs - 24 hr 09/29/23 11:22 Temperature 36.7 C Heart Rate 66 Respiratory 16 Rate Blood Pressure 136/59 H O2 Saturation 99 Oxygen O2 Source Room air - EKG (time done) 1122 EKG releavant findings:: EKG personally interpreted by author of this note. Relevant findings are: Rate: Rate (enter#) (59) Rhythm: NSR [place]: Normal Intervals: RBBB QRS: Normal Ischemia: Q waves (Q waves in V1 and V2). No: ST elevation c/w ischemia, ST depression - Labs Labs: Laboratory Tests 09/29/23 09/29/23 11:47 11:47 WBC 7.2 RBC 3.98 L Hgb 12.5 L Hct 39.7 L MCV 99.7 H MCH 31.4 H MCHC 31.5 L RDW 12.6 Plt Count 180 MPV 12.8 H Neut # (Auto) 5.1 Lymph # (Auto) 1.3 L Ritchie # (Auto) 0.6 Eos # (Auto) 0.1 Baso # (Auto) 0.1 Absolute Nucleated RBC 0.00 Nucleated RBC % 0.0 Sodium 141 Potassium 4.1 Chloride 108 Carbon Dioxide 30 Anion Gap 3.0 L BUN 28 H Creatinine 0.9 Estimated GFR (MDRD) 81 L Glucose 80 Calcium 9.6 Total Bilirubin 0.4 AST 10 ALT 10 Alkaline Phosphatase 56 Troponin I High Sens 8.1 Total Protein 6.3 L Albumin 4.0 Globulin 2.3 Albumin/Globulin Ratio 1.7 Lipase < 10 L - Rads (name of study) Single view chest x-ray is unremarkable Relevant Findings:: Final report received, EMP independent interpretation of test PD Medical Decision Making - ED course ED course: He has been pain-free since last night. This certainly could have been angina and so discussed with him. He needs probably follow-up stress testing and counseled to return for recurrent pain issues. Departure - Departure Disposition: Home, Self Care Clinical Impression: Chest pain Qualifiers: Chest pain type: unspecified Qualified Code(s): R07.9 - Chest pain, unspecified Condition: Good Record reviewed to determine appropriate education?: Yes Instructions: Angina Dc Prescriptions: Nitroglycerin [Nitrostat] 0.4 mg SL Q5MIN PRN #1 tab PRN Reason: Chest Pain Comments: As discussed the pain you had last night certainly could have been an episode of angina. Your EKG is unchanged from prior and your biomarkers are negative so there is been no damage to your heart. Follow-up with Dr. Saritha ALMENDAREZ with consideration for follow-up stress testing. Return if pain recurs. Would recommend calling 911 for any chest pain episode that does not resolved quickly with nitro.
[2023-09-29 13:18] VITALS: BP 134/58
== END 2023-09-29 13:13 | disposition home or self-care (01) ==
LOC: ED 11:16
DX: R07.9 Chest pain, unspecified (principal); I10 Essential (primary) hypertension; E78.00 Pure hypercholesterolemia, unspecified; I25.2 Old myocardial infarction; K21.9 Gastro-esophageal reflux disease without esophagitis; F17.200 Nicotine dependence, unspecified, uncomplicated; Z79.82 Long term (current) use of aspirin; Z79.899 Other long term (current) drug therapy
CPT/HCPCS: 36415; 80053; 83690; 84484; 85025; 93005; 99284

== ENCOUNTER 2023-10-10 10:41 | Outpatient (CLI) | payer MEDICARE ==
[2023-10-10 17:40] LABS: BASOPHILS # (AUTO) 0.1 10^3/uL (0.0-0.1); BASOPHILS % (AUTO) 0.5 %; EOSINOPHILS # (AUTO) 0.2 10^3/uL (0.0-0.7); EOSINOPHILS % (AUTO) 2.1 %; HCT - HEMATOCRIT 40.1 % (42.0-52.0); HGB - HEMOGLOBIN 12.7 g/dL (14.0-18.0); LYMPHOCYTES # (AUTO) 1.5 10^3/uL (1.5-3.5); LYMPHOCYTES % (AUTO) 14.1 %; MEAN CORPUSCULAR HEMOGLOBIN 32.1 pg (27.0-31.0); MEAN CORPUSCULAR HGB CONC 31.7 g/dL (32.0-36.0); MEAN CORPUSCULAR VOLUME 101.3 fL (80.0-94.0); MEAN PLATELET VOLUME 13.3 fL (7.4-11.4); MONOCYTES # (AUTO) 0.7 10^3/uL (0.0-1.0); NEUTROPHILS # (AUTO) 8.3 10^3/uL (1.5-6.6); NEUTROPHILS % (AUTO) 76.6 %; PLT - PLATELET COUNT 169 10^3/uL (130-450); RED BLOOD COUNT 3.96 10^6/uL (4.70-6.10); RED CELL DISTRIBUTION WIDTH 12.7 % (12.0-15.0); WHITE BLOOD COUNT 10.9 x10^3/uL (4.8-10.8)
[2023-10-10 18:17] LABS: ALBUMIN 3.9 g/dL (3.2-5.5); ALBUMIN/GLOBULIN RATIO 1.6 (1.0-2.2); ALKALINE PHOSPHATASE 57 IU/L (42-121); ALT ALANINE AMINOTRANSFERASE 12 IU/L (10-60); AST ASPARTATE AMINOTRANSFERASE 11 IU/L (10-42); BILIRUBIN,TOTAL 0.5 mg/dL (0.2-1.0); BUN - BLOOD UREA NITROGEN 26 mg/dL (6-20); CALCIUM 9.3 mg/dL (8.5-10.3); CARBON DIOXIDE - CO2 30 mmol/L (21-32); CHLORIDE 106 mmol/L (101-111); CHOL/HDL RATIO 2.4 (<5.0); CHOLESTEROL 150 mg/dL; CREATININE 0.9 mg/dL (0.6-1.3); GFR - MDRD 81 (>89); GLUCOSE 101 mg/dL (74-104); HDL CHOLESTEROL 63 mg/dL; LDL CHOLESTEROL,CALCULATED 62 mg/dL; POTASSIUM 4.2 mmol/L (3.5-4.5); SODIUM 139 mmol/L (135-145); TOTAL PROTEIN 6.3 g/dL (6.4-8.9); TRIGLYCERIDES 123 mg/dL (48-352); VLDL CHOLESTEROL 25 mg/dL
== END 2023-10-10 10:42 | disposition home or self-care (01) ==
LOC: LAB.N 10:41
PROVIDERS: ATTEND Internal Medicine
DX: I25.2 Old myocardial infarction (principal); I20.9 Angina pectoris, unspecified
CPT/HCPCS: 36415; 80053; 80061; 83721; 85025

== ENCOUNTER 2025-01-10 18:40 | Observation (INO) ==
--- OUTSIDE RECORDS SUMMARY | 2025-01-10 19:06 | EXTERNAL MEDICAL SUMMARY RPT | Continuity of Care Document ---
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 [facility] 2024-10-17 15:13 Atherosclerotic hear t disease of [employer] coronary 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 [facility] 2024-10-17 15:13 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 [facility] 2024-10-18 15:29 Atherosclerotic hear t disease of [employer] coronary 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 [facility] 2024-10-18 15:29 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 [facility] 2024-10-22 11:47 [facility] 2024-10-22 11:47 Atherosclerotic hear t disease of [place] coronary 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 [facility] 2024-10-22 11:47 Cerebral infarction, unspecifie d [facility] 2024-10-23 08:17 Atherosclerotic hear t disease of [employer] coronary 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 [facility] 2024-10-23 08:17 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 [facility] 2024-10-27 08:57 Hyperlipidemia, unspecified [employer] [facility] [employer] 2024-10-27 08:57 Atherosclerotic hear t disease of [place] coronary 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 [facility] 2024-10-28 00:01 Hyperlipidemia, unspecified [facility] 2024-10-28 00:01 Atherosclerotic hear t disease of [place] coronary 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 [facility] 2024-10-28 15:21 Atherosclerotic hear t disease of [employer] coronary 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 [facility] 2024-10-28 15:21 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 [facility] 2024-10-29 11:37 Hyperlipidemia, unspecified [facility] 2024-10-30 15:24 Atherosclerotic hear t disease of [employer] coronary 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 [facility] 2024-10-30 15:24 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 [facility] 2024-11-04 14:54 Atherosclerotic hear t disease of [employer] coronary 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 [facility] 2024-11-04 14:54 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 [facility] 2024-11-06 15:00 Atherosclerotic hear t disease of [employer] coronary 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 [facility] 2024-11-06 15:00 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 [facility] 2024-11-08 14:33 Atherosclerotic hear t disease of [employer] coronary 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 [facility] 2024-11-08 14:33 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 [facility] 2024-11-12 07:31 Atherosclerotic hear t disease of [employer] coronary 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 [facility] 2024-11-12 07:31 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 [facility] 2024-11-15 13:43 Atherosclerotic hear t disease of [employer] coronary 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 [facility] 2024-11-15 13:43 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 [facility] 2024-11-19 07:30 Atherosclerotic hear t disease of [employer] coronary 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 [facility] 2024-11-19 07:30 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 [facility] 2024-11-20 14:54 Atherosclerotic hear t disease of [employer] coronary 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 [facility] 2024-11-20 14:54 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 [facility] 2024-11-22 14:03 Atherosclerotic hear t disease of [employer] coronary 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 [facility] 14:03 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 [facility] 2024-11-22 15:16 Atherosclerotic hear t disease of [employer] coronary 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 [facility] 15:16 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 [facility] 2024-11-27 15:25 Atherosclerotic hear t disease of [employer] coronary 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 [facility] 2024-11-27 15:25 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 [facility] 2024-12-02 14:50 Atherosclerotic hear t disease of [employer] coronary 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 [facility] 14:50 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 [facility] 2024-12-04 15:19 Atherosclerotic hear t disease of [employer] coronary 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 [facility] 15:19 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 [facility] 2024-12-06 14:39 Atherosclerotic hear t disease of [employer] coronary 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 [facility] 2024-12-06 14:39 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 [facility] 2024-12-09 15:01 Atherosclerotic hear t disease of [employer] coronary 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 [facility] 15:01 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 [facility] 2024-12-11 14:15 Atherosclerotic hear t disease of [employer] coronary 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 [facility] 2024-12-11 14:15 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 [facility] 2024-12-13 15:50 Atherosclerotic hear t disease of [employer] coronary 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 [facility] 2024-12-13 15:50 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 [facility] 2024-12-16 14:50 Atherosclerotic hear t disease of [place] coronary 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 [facility] 14:50 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 [facility] 2024-12-18 15:15 Atherosclerotic hear t disease of [employer] coronary 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 [facility]18 15:15 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 [facility] 2024-12-25 09:39 Atherosclerotic hear t disease of [place] coronary 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 [facility]25 09:39 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 [facility] 2024-12-25 14:17 Atherosclerotic hear t disease of [place] coronary 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 [facility] 14:17 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 [facility] 2024-12-26 07:55 Atherosclerotic hear t disease of [place] coronary 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 [facility] 2024-[facility]26 07:55 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 [facility] 2024-12-26 07:56 Atherosclerotic hear t disease of [place] coronary 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 [facility]24-[facility]26 07:56 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 [facility] 2024-12-27 16:00 Atherosclerotic hear t disease of [place] coronary 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 [facility]27 16:00 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 [facility] 2025-01-03 14:44 Atherosclerotic hear t disease of [place] coronary 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 [facility] 14:44 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 [facility] 2025-01-06 07:18 Atherosclerotic hear t disease of [place] coronary 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 [facility] 07:18 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 [facility] 2025-01-06 15:35 Atherosclerotic hear t disease of [employer] coronary 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 [facility] 2025-01-06 15:35 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 [facility] 2025-01-08 07:10 Atherosclerotic hear t disease of [employer] coronary 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 [facility] 2025-01-08 07:10 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 [facility] 2025-01-08 07:11 Atherosclerotic hear t disease of [employer] coronary 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 [facility] 2025-01-08 07:11 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 CREATININE 2024-10-27 09:00 [facility] 1.2 mg/dl As of October 2022 testing method has changed, this may include reference ranges. ALBUMIN/GLOBULIN RATIO 2024-10-27 09:00 [facility] 1.7 (missing) (missing) LDL/HDL RATIO 2024-10-27 09:00 [facility] 1.8 (mis sing) (missing) ALT ALANINE AMINOTRANSFERASE 2024-10-27 09:00 [facility] 10 iu/l As of October 2022 testing method has changed, this may include reference ranges. GLUCOSE 2024-10-27 09:00 [facility] 105 mg/dl As of October 2022 testing method has changed, this may include reference ranges. CHLORIDE 2024-10-27 09:00 [facility] 106 mmol/l As of October 2022 testing method has changed, this may include reference ranges. LDL CHOLESTEROL,CALCULATED 2024-10-27 09:00 [facility] 109 mg/dl Social History date description facility
--- NOTE | 2025-01-10 19:19 | ED Physician Documentation ---
History of Present Illness Stated complaint Stated Complaint: SZ/V/D Chief complaint Chief Complaint: Neuro History obtained from History obtained from: Patient History of Present Illness Timing: Prior to arrival Additonal information Additional information: Patient is an 84-year-old male presenting to the emergency department after being driven by a friend to [place] on their way patient had an episode of shaking with his arms outstretched and was unresponsive no tongue biting or incontinence patient pulled over and had multiple episodes of vomiting. 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 Patient is on Eliquis regularly. He has had multiple bouts of diarrhea and vomiting since he has been here he has reported persistent nausea symptoms he feels room spinning and nausea at this time but no focal deficits no difficulty speaking he was no vision changes no chest pain or shortness of breath no weakness unilaterally. He has following with [facility] cardiology as well as neurology. He has no history of previous seizures. Meds/Allgy Home Medications Ambulatory Orders Medication Instructions Recorded Confirmed albuterol sulfate 90 mcg/actuation 1 - 2 puff inhalati on Q4HR PRN 05/02/24 10/22/24 aerosol inhaler (Ventolin HFA) Shortness Of Air/Wheezi ng ascorbic acid (vitamin C) 500 mg 500 mg PO QDAY 10/22/24 tablet cholecalciferol (vitamin D3) 25 50 mcg PO QDAY 5 10/22/24 mcg (1,000 unit) capsule donepezil 10 mg tablet 10 mg PO QDAY #90 tabs 05/0210/22/24 dutasteride 0.5 mg capsule 0.5 mg PO QDAY 05/02/2405/18 ferrous sulfate 325 mg (65 mg 325 mg PO QDAY 05/02/24 10/22/24 iron) tablet fexofenadine 180 mg tablet 180 mg PO QDAY 05/02/2405/18 loratadine 10 mg tablet 10 mg PO QDAY 05/02/2410/22 mecobalamin (vitamin B12) 1,000 1,000 mcg PO QDAY 01/1610/22/24 mcg chewable tablet tamsulosin 0.4 mg capsule 0.4 mg PO QPM 05/02/2410/22 zafirlukast 20 mg tablet 20 mg PO BID 05/02/24 carbidopa 25 mg-levodopa 100 mg 1 tab PO QPM #90 tabs 05/07/24 10/22/24 tablet (Sinemet) nitroglycerin 0.4 mg sublingual 0.4 mg sublingual Q5M PRN 05/29/24 10/22/24 tablet pantoprazole 40 mg tablet,delayed 40 mg PO QDAY 10/22/24 release rosuvastatin 10 mg tablet 10 mg PO QDAY #30 tabs 07/0110/22/24 duloxetine 30 mg capsule,delayed 30 mg PO QAM 07/17/24 10/22/24 release losartan 25 mg tablet 25 mg PO ONCE 07/17/2410/22 prazosin 2 mg capsule 6 mg PO QPM 07/17/24 5 scopolamine base 1 mg over 3 days 1 patch transdermal Q3D PRN 07/17/24 10/22/24 transdermal patch carvedilol 6.25 mg tablet 6.25 mg PO BID #30 tabs /10/22/24 clopidogrel 75 mg tablet 75 mg PO QDAY 08/21/2410/22 ondansetron 4 mg disintegrating 4 mg PO Q8H PRN nausea and 08/21/24 10/22/24 tablet vomiting #45 tabs fluticasone fur. 200 mcg-umeclid 1 inh inhalation QDAY #180 ea 12/08/24 62.5 mcg-vilant 25 mcg inhalat.powder (Trelegy Ellipta) Allergies Allergies Allergy/AdvReac Type Severity Reaction Status Date / Time lobster Allergy Severe Hives Verified 01/10/25 18:58 pramipexole AdvReac Severe Hallucinati Verified 01/10/25 18:58 ons LAZ Inhibitors AdvReac Mild Cough Verified 01/10/25 18:58 PFS Active Problems All Active Problems (Updated 01/10/25 @ 22:21 by Sapna Mejía PA-C) Chest pain (Acute) Diarrhea (Acute) Dizziness (Acute) Nausea & vomiting (Acute) Syncope (Acute) Nausea and vomiting in adult (Acute) Hypertension (Acute) Nightmares (Acute) CVA (cerebral vascular accident) (Acute) Coronary artery disease (Acute) COPD (chronic obstructive pulmonary disease) (Chronic) Cigarette smoker one half pack a day or less (Acute) Obstructive sleep apnea on CPAP (Acute) Periodic limb movement disorder (PLMD) (Acute) Age-related cognitive decline (Acute) GERD (gastroesophageal reflux disease) (Acute) Mixed hyperlipidemia (Acute) BPH w urinary obs/LUTS (Acute) Depression (Acute) Sigmoid diverticulosis (Acute) Idiopathic peripheral neuropathy (Acute) Vitamin B12 deficiency (Acute) Seasonal allergic rhinitis (Acute) Actinic skin damage (Acute) Medical History Medical History (Updated 01/10/25 @ 22:21 by Sapna Mejía PA-C) Hx of acute myocardial infarction 2000, stent x 1, ? artery Adenomatous colon polyp Umbilical hernia Surgical History Surgical History (Updated 05/29/24 @ 17:10 by Nereida Escalante RN) Stented coronary artery LAD x3, RCA x2 H/O colonoscopy 06/2023, normal w/ sigmoid diverticulosis H/O colonoscopy 01/2018, adenomatous polyp + sigmoid diverticulosis H/O colonoscopy 10/2007, sigmoid diverticlosis H/O heart artery stent 2000, w/ AMI, stent x 1, ? artery Carotid aneurysm, left Repaired H/O nasal septoplasty Family History Family History Mother Uterine cancer Chronic bronchitis Father Alcoholism Brother Suicide Substance abuse Social History Social History (Updated 10/22/24 @ 11:05 by Tanvi Hill) If you are a former smoker, when did you quit? (Date/Year): April 2024 Number of Years Smoked: 70 How many cigarettes a day do you smoke? (20 cigarettes=1 Pk): 15 Second hand tobacco smoke exposure: Yes Do you dip or chew tobacco?: No Do you vape?: No Living arrangement: At home Marital Status: Living Condition: With spouse/s.o. Support Person: Yes Level: Independent Do you feel safe in your home environment?: Yes History of physical, verbal, emotional, or financial abuse?: No ETOH Use: None Substance Use: denies use Are you sexually active?: No Occupation - Current: [email or web address] work, past [employer] service Retired: Yes Service: Yes Exam Exam Vital Signs: Vital Signs x48h Temp Pulse Resp BP Pulse Ox 01/10/25 21:13 77 18 154/67 H 95 01/10/25 20:58 75 18 147/68 H 96 01/10/25 18:52 36.6 C 67 16 147/71 H 97 Constitutional normal general appearance HENMT normocephalic and head/scalp atraumatic Eyes PERRL, EOMs intact bilaterally and conjunctivae normal Neck/C-Spine visual inspection normal Lymph no lymphadenopathy noted Chest inspection of chest normal Respiratory breath sounds equal bilaterally, normal respiratory effort and clear to auscultation bilaterally Cardiovascular normal heart rate noted, regular rhythm noted, no gallop and no rub Gastrointestinal abdomen normal to inspection No abdominal tenderness, rebound or guarding Genitourinary no CVA tenderness Extremities normal to inspection Moving upper and lower extremities 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 model 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 II-XII 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 Finger to nose test intact, GCS 15, No pronator drift, Heel down rizzo test intact, normal speech Results Vitals Vitals: Vital Signs - 24 hr 01/10/25 18:52 01/10/25 20:58 01/10/25 21:13 Temperature 36.6 C Temperature Source Oral Pulse Rate 67 75 77 Respiratory Rate 16 18 18 Blood Pressure 147/71 H 147/68 H 154/67 H O2 Saturation 97 96 95 O2 Source Room air Room air Room air Pain Intensity 0 Oxygen O2 Source Room air Labs Labs: Laboratory Tests 01/10/25 01/10/25 01/10/25 19:17 19:23 22:06 WBC 6.9 RBC 3.69 L Hgb 11.8 L Hct 36.9 L MCV 100.0 H MCH 32.0 H MCHC 32.0 RDW 12.1 Plt Count 157 MPV 12.6 H Neut # (Auto) 5.0 Lymph # (Auto) 1.2 L [place] # (Auto) 0.5 Eos # (Auto) 0.1 Baso # (Auto) 0.1 Absolute Nucleated RBC 0.00 Nucleated RBC % 0.0 PT 11.6 INR 1.0 Sodium 139 Potassium 4.1 Chloride 106 Carbon Dioxide 27 Anion Gap 6.0 BUN 27 H Creatinine 1.2 Estimated GFR (MDRD) 58 L Glucose 188 H POC Whole Bld Glucose 196 Lactic Acid 2.1 Calcium 9.4 Magnesium 1.9 Total Bilirubin 0.4 AST 12 ALT 16 Alkaline Phosphatase 67 Troponin I High Sens 11.3 14.1 Total Protein 6.5 Albumin 4.1 Globulin 2.4 Albumin/Globulin Ratio 1.7 PD Medical Decision Making ED course Complexity details: reviewed old records and reviewed results ED course: Patient is a 84-year-old male presenting to the emergency department after riding in the car with a family friend having a episode where he passed out and had his arms stuck out from his body he had no tongue biting no incontinence and recalls the event well. He has no history of seizures but had history of stroke and coronary artery disease back in May. He is on plavix for history of previous stroke and CAD. Patient answering questions appropriately here in the ED no acute distress no persistent vomiting but still feeling nauseous here in the ED. NIH score 0. Vital stable here in the ED.Moving all extremities no nystagmus on arrival answering questions appropriately. Patient has no chest pain no shortness of breath. does provide history the patient ate and sandwich this afternoon that was abnormal. He was given Zofran and fluids here in the ED. EKG on arrival shows normal sinus rhythm with short [place] and right bundle branch block and left anterior fasicular block. CT head: No acute intracranial pathology. CTA head and neck: 1. No significant intracranial arterial abnormalities are seen. 2. Atherosclerotic calcifications are noted involving origins of bilateral internal carotid arteries with less than 50% stenosis. No hemodynamically significant stenosis can be seen within the arteries of the neck. CXR: No acute cardiopulmonary process. Patient's labs were reassuring here in the ED rechecking on patient continues to deny any persistent symptoms suspect his episode was secondary to his syncopal episode as he has a negative lactic acid here no tongue biting and no postictal confusion. Labs are otherwise reassuring with no leukocytosis no electrolyte abnormality no significant PIERO troponin is well within normal limits and repeat EKG shows no acute changes.NIH score of 0. Patient feels back to his baseline. I discussed with patient staying overnight for syncopal episode and he and his family are agreeable with this plan. I reached out to telehospitalist Dr. Lopez who reviewed patient's case and accepts patient to the floor for monitring his symptoms. Discharge Plan Discharge Patient Disposition: 66 [facility] DC/Xfer Condition: Good Clinical Impression: Syncope, Nausea & vomiting, Dizziness, Diarrhea, Chest pain Prescriptions: No Action rosuvastatin 10 mg tablet 10 mg PO QDAY Qty: 30 2RF Trelegy Ellipta 200-62.5-25 mcg blister with device 1 inh inhalation QDAY Qty: 180 0RF Rx Instructions: Rinse and spit after use. zafirlukast 20 mg tablet 20 mg PO BID Rx Instructions: must be taken on empty stomach, at least 1 hr before or 2 hrs after a meal/food tamsulosin 0.4 mg capsule 0.4 mg PO QPM dutasteride 0.5 mg capsule 0.5 mg PO QDAY ferrous sulfate 325 mg (65 mg iron) tablet 325 mg PO QDAY ascorbic acid (vitamin C) 500 mg tablet 500 mg PO QDAY fexofenadine 180 mg tablet 180 mg PO QDAY loratadine 10 mg tablet 10 mg PO QDAY albuterol sulfate [Ventolin HFA] 90 mcg/actuation HFA aerosol inhaler 1 - 2 puff inhalation Q4HR PRN (Reason: Shortness Of Air/Wheezing) mecobalamin (vitamin B12) 1,000 mcg tablet,chewable 1,000 mcg PO QDAY cholecalciferol (vitamin D3) 25 mcg (1,000 unit) capsule 50 mcg PO QDAY donepezil 10 mg tablet 10 mg PO QDAY Qty: 90 3RF Rx Instructions: start after completing 5 mg tabs carbidopa-levodopa [Sinemet] 25-100 mg tablet 1 tab PO QPM Qty: 90 3RF duloxetine 30 mg capsule,delayed release(DR/EC) 30 mg PO QAM pantoprazole 40 mg tablet,delayed release (DR/EC) 40 mg PO QDAY nitroglycerin 0.4 mg tablet, sublingual 0.4 mg sublingual Q5M PRN Rx Instructions: do not exceed 3 doses per episode losartan 25 mg tablet 25 mg PO ONCE scopolamine base 1 mg over 3 days patch 3 day 1 patch transdermal Q3D PRN prazosin 2 mg capsule 6 mg PO QPM clopidogrel 75 mg tablet 75 mg PO QDAY ondansetron 4 mg tablet,disintegrating 4 mg PO Q8H PRN (Reason: nausea and vomiting) Qty: 45 0RF carvedilol 6.25 mg tablet 6.25 mg PO BID Qty: 30 0RF Rx Instructions: must administer with a meal/food Print Language: French
[2025-01-10 19:28] LABS: HCT - HEMATOCRIT 36.9 % (42.0-52.0); HGB - HEMOGLOBIN 11.8 g/dL (14.0-18.0); MEAN PLATELET VOLUME 12.6 fL (7.4-11.4); NRBC ABSOLUTE COUNT (AUTO) 0.00 x10^3/uL; NUCLEATED RED BLOOD CELLS AUTO 0.0 /100WBC; PLT - PLATELET COUNT 157 10^3/uL (130-450); RED CELL DISTRIBUTION WIDTH 12.1 % (12.0-15.0)
[2025-01-10 19:34] LABS: INR 1.0 (0.8-1.2); PT - PROTHROMBIN TIME 11.6 secs (9.9-12.6)
[2025-01-10 19:49] LABS: ALT ALANINE AMINOTRANSFERASE 16.0 IU/L (10-60); AST ASPARTATE AMINOTRANSFERASE 12.0 IU/L (10-42); BUN - BLOOD UREA NITROGEN 27.0 mg/dL (6-20); CARBON DIOXIDE - CO2 27.0 mmol/L (21-32); CREATININE 1.2 mg/dL (0.6-1.3); GFR - MDRD 58.0 (>89)
[2025-01-10 19:51] LABS: TROPONIN I HIGH SENSITIVITY 11.3 ng/L (2.3-19.7)
[2025-01-10] MEDS: SODIUM CHLORIDE 0.9% 1,000 ML IV STA (20:13)
[2025-01-10] MEDS: ONDANSETRON 4 MG/2 ML VIAL IVP STA (20:13)
--- NOTE | 2025-01-10 20:33 | XRAY Report ---
PROCEDURE: XR Chest 1V INDICATIONS: syncope TECHNIQUE: One view of the chest was acquired. COMPARISON: 09/29/2023 FINDINGS: Surgical changes and devices: None. Lungs and pleura: No pleural effusions or pneumothorax. No consolidation. Mediastinum: Mediastinal contours appear normal. Heart size is normal. Bones and chest wall: No suspicious bony lesions. Overlying soft tissues appear unremarkable. IMPRESSION: No acute cardiopulmonary process. Reviewed by: Jules Pettit MD on 01/10/2025 8:30 PM PDT Approved by: Jules Pettit MD on 01/10/2025 8:30 PM PDT Station ID: [id number]
--- NOTE | 2025-01-10 20:34 | CT Report ---
PROCEDURE: CT Head WO INDICATIONS: seizure like activity TECHNIQUE: CT of the head was performed, without intravenous contrast. Reformats: Coronal and sagittal. For radiation dose reduction, the following was used: automated exposure control, adjustment of mA and/or kV according to patient size. COMPARISON: 10/03/2014 FINDINGS: Image quality: Diagnostic. CSF spaces: Basal cisterns are patent. No extra-axial fluid collections. Ventricles are normal in size and shape. Brain: No midline shift. No intracranial mass effect or hemorrhage. Savage- white matter interface is normal. Age appropriate volume loss and periventricular white matter hypoattenuation, likely chronic ischemic change. Skull and face: Calvarium and visualized facial bones are intact, without suspicious lesions. Sinuses: Visualized sinuses and mastoids are clear. IMPRESSION: No acute intracranial pathology. Reviewed by: Jules Pettit MD on 01/10/2025 8:31 PM PDT Approved by: Jules Pettit MD on 01/10/2025 8:31 PM PDT Station ID: [id number]
--- NOTE | 2025-01-10 21:56 | CT Report ---
PROCEDURE: CT Angio Head/Neck INDICATIONS: nausea, vomiting, syncopal episode CONTRAST: 80ml omni 300 TECHNIQUE: After the administration of intravenous contrast, images were acquired from the aortic arch through the [place]. 3-dimensional uoawnlw-ayltdcrld-binwjpaugx (MIP) and volume rendering reformats were acquired of the central intracranial vasculature and neck separately. COMPARISON: CT head from the same day and 10/03/2014. FINDINGS: Image quality: Diagnostic. Cerebral CT Angiogram: Internal carotid arteries: No acute findings. Intracranial ICA are patent with no significant stenosis. No occlusion. No aneurysm. Anterior cerebral arteries: Unremarkable. No significant stenosis. No occlusion. No aneurysm. Middle cerebral arteries: Unremarkable. No significant stenosis. No occlusion. No aneurysm. Posterior cerebral arteries: Unremarkable. No significant stenosis. No occlusion. No aneurysm. Basilar artery: Unremarkable. No significant stenosis. No occlusion. No aneurysm. Vertebral arteries: Unremarkable as visualized. Dural venous sinuses: Unremarkable given phase of enhancement. Other: Arterial phase appearance of the brain parenchyma is unremarkable. Neck CT Angiogram: Internal carotid arteries: Atherosclerotic calcifications are noted involving origins of bilateral internal carotid arteries with less than 50% stenosis slightly worse on the right side. No dissection or occlusion. Common carotid arteries: Unremarkable. No significant stenosis. No dissection or occlusion. External carotid arteries: Unremarkable. No occlusion. Vertebral arteries: Unremarkable. No significant stenosis. No dissection or occlusion. Aortic Arch and Mediastinum: Partially visualized aortic arch unremarkable without evidence of aneurysm. Origins of the great vessels unremarkable. Other: Arterial phase soft tissues of the neck and chest are unremarkable. IMPRESSION: 1. No significant intracranial arterial abnormalities are seen. 2. Atherosclerotic calcifications are noted involving origins of bilateral internal carotid arteries with less than 50% stenosis. No hemodynamically significant stenosis can be seen within the arteries of the neck. The estimate of stenosis included in the report of the imaging study was calculated using the NASCET method Reviewed by: Jules Jay MD on 01/10/2025 9:53 PM PDT Approved by: Jules Jay MD on 01/10/2025 9:53 PM PDT Station ID: [id number]
--- NOTE | 2025-01-10 22:41 | HISTORY & PHYSICAL EXAMINATION ---
Chief Complaint Chief Complaint Chief Complaint: Syncope History of Present Illness History of Present Illness HPI Comment/Other: Patient is 84 y/o M with hx of CAD and hx of multiple cardiac stents on Plavix and last stent in 05/2024 , on medical management for CAD, hx of BPH, HTN , HLD presented to hospital for evaluation of syncopal episode. Patient was at friend's place, passed out for 2 minutes, witnessed, no tongue bite, no seizure like activity, came back to consciousness on his own spontaenously, preceding to syncope patient had bowel movement which he describes loose stool/diarrhea, which is resolved, denies any focal weakness, denies chest pain. but symptoms are preceding to syncope included nausea, vomiting and 1 episode of diarrhea, no recent fever, no chills, no abdominal pain, in ER patient had CTA head and neck and EKG changes which are not consistent with acute etiology of stroke, hospitalist team is asked to evalaute for syncope Meds/Allgy Home Medications Ambulatory Orders Medication Instructions Recorded Confirmed albuterol sulfate 90 mcg/actuation 1 - 2 puff inhalati on Q4HR PRN 05/02/24 10/22/24 aerosol inhaler (Ventolin HFA) Shortness Of Air/Wheezi ng ascorbic acid (vitamin C) 500 mg 500 mg PO QDAY 10/22/24 tablet cholecalciferol (vitamin D3) 25 50 mcg PO QDAY 5 10/22/24 mcg (1,000 unit) capsule donepezil 10 mg tablet 10 mg PO QDAY #90 tabs 05/0210/22/24 dutasteride 0.5 mg capsule 0.5 mg PO QDAY 05/02/2405/18 ferrous sulfate 325 mg (65 mg 325 mg PO QDAY 05/02/24 10/22/24 iron) tablet fexofenadine 180 mg tablet 180 mg PO QDAY 05/02/2405/18 loratadine 10 mg tablet 10 mg PO QDAY 05/02/2410/22 mecobalamin (vitamin B12) 1,000 1,000 mcg PO QDAY 01/1610/22/24 mcg chewable tablet tamsulosin 0.4 mg capsule 0.4 mg PO QPM 05/02/2410/22 zafirlukast 20 mg tablet 20 mg PO BID 05/02/24 carbidopa 25 mg-levodopa 100 mg 1 tab PO QPM #90 tabs 05/07/24 10/22/24 tablet (Sinemet) nitroglycerin 0.4 mg sublingual 0.4 mg sublingual Q5M PRN 05/29/24 10/22/24 tablet pantoprazole 40 mg tablet,delayed 40 mg PO QDAY 10/22/24 release rosuvastatin 10 mg tablet 10 mg PO QDAY #30 tabs 07/0110/22/24 duloxetine 30 mg capsule,delayed 30 mg PO QAM 07/17/24 10/22/24 release losartan 25 mg tablet 25 mg PO ONCE 07/17/2410/22 prazosin 2 mg capsule 6 mg PO QPM 07/17/24 5 scopolamine base 1 mg over 3 days 1 patch transdermal Q3D PRN 07/17/24 10/22/24 transdermal patch carvedilol 6.25 mg tablet 6.25 mg PO BID #30 tabs 07/2510/22/24 clopidogrel 75 mg tablet 75 mg PO QDAY 08/21/2410/22 ondansetron 4 mg disintegrating 4 mg PO Q8H PRN nausea and 08/21/24 10/22/24 tablet vomiting #45 tabs fluticasone fur. 200 mcg-umeclid 1 inh inhalation QDAY #180 ea 12/08/24 62.5 mcg-vilant 25 mcg inhalat.powder (Trelegy Ellipta) Allergies Allergies Allergy/AdvReac Type Severity Reaction Status Date / Time lobster Allergy Severe Hives Verified 01/10/25 18:58 pramipexole AdvReac Severe Hallucinati Verified 01/10/25 18:58 ons LAZ Inhibitors AdvReac Mild Cough Verified 01/10/25 18:58 PFS Active Problems All Active Problems (Updated 01/10/25 @ 22:21 by Sapna Mejía PA-C) Chest pain (Acute) Diarrhea (Acute) Dizziness (Acute) Nausea & vomiting (Acute) Syncope (Acute) Nausea and vomiting in adult (Acute) Hypertension (Acute) Nightmares (Acute) CVA (cerebral vascular accident) (Acute) Coronary artery disease (Acute) COPD (chronic obstructive pulmonary disease) (Chronic) Cigarette smoker one half pack a day or less (Acute) Obstructive sleep apnea on CPAP (Acute) Periodic limb movement disorder (PLMD) (Acute) Age-related cognitive decline (Acute) GERD (gastroesophageal reflux disease) (Acute) Mixed hyperlipidemia (Acute) BPH w urinary obs/LUTS (Acute) Depression (Acute) Sigmoid diverticulosis (Acute) Idiopathic peripheral neuropathy (Acute) Vitamin B12 deficiency (Acute) Seasonal allergic rhinitis (Acute) Actinic skin damage (Acute) Medical History Medical History (Updated 01/10/25 @ 22:21 by Sapna Mejía PA-C) Hx of acute myocardial infarction 2000, stent x 1, ? artery Adenomatous colon polyp Umbilical hernia Surgical History Surgical History (Updated 05/29/24 @ 17:10 by Nereida Escalante RN) Stented coronary artery LAD x3, RCA x2 H/O colonoscopy 06/2023, normal w/ sigmoid diverticulosis H/O colonoscopy 01/2018, adenomatous polyp + sigmoid diverticulosis H/O colonoscopy 10/2007, sigmoid diverticlosis H/O heart artery stent 2000, w/ AMI, stent x 1, ? artery Carotid aneurysm, left Repaired H/O nasal septoplasty Family History Family History Mother Uterine cancer Chronic bronchitis Father Alcoholism Brother Suicide Substance abuse Social History Social History (Updated 10/22/24 @ 11:05 by Tanvi Hill) If you are a former smoker, when did you quit? (Date/Year): April 2024 Number of Years Smoked: 70 How many cigarettes a day do you smoke? (20 cigarettes=1 Pk): 15 Second hand tobacco smoke exposure: Yes Do you dip or chew tobacco?: No Do you vape?: No Living arrangement: At home Marital Status: Living Condition: With spouse/s.o. Support Person: Yes Level: Independent Do you feel safe in your home environment?: Yes History of physical, verbal, emotional, or financial abuse?: No ETOH Use: None Substance Use: denies use Are you sexually active?: No Occupation - Current: [employer] work, past [employer] service Retired: Yes Service: Yes Review of Systems Status of ROS: 10 or more systems reviewed and unremarkable except as noted in history and below Exam Exam Vital Signs: Vital Signs x48h Temp Pulse Resp BP Pulse Ox 01/10/25 21:13 77 18 154/67 H 95 01/10/25 20:58 75 18 147/68 H 96 01/10/25 18:52 36.6 C 67 16 147/71 H 97 unable to do any exam due to video visit, patient is comfortable , sitting and talking no distress noted Constitutional normal general appearance and no apparent distress Conclusion/Plan Problem List (1) Syncope: Plan: - Unclear etilogy, considering GI symptoms prior to syncope, vasovagal syncope?? - Obtain 2D echo and MR brain considering CAD risk factors - admit to Tele and continue tele monitoring - Obtain orthostatics - Continue Overnight flu - Not on oxygen, stable vital signs - Continue supportive care (2) Hx of acute myocardial infarction: Plan: - hx of stents on Plavix Crestor and B smooth - Resume home medications Lab Results 01/10/25 19:23 01/10/25 19:23
[2025-01-10] MEDS ORDERED: PANTOPRAZOLE 40 MG TABLET PO SCH (23:14)
[2025-01-10] MEDS ORDERED: FLUTICASONE UMECLIDIN VILANTER INH SCH (23:14)
[2025-01-10] MEDS ORDERED: CLOPIDOGREL 75 MG TABLET PO SCH (23:14)
[2025-01-10] MEDS ORDERED: ONDANSETRON 4 MG/2 ML VIAL IVP PRN (23:14)
[2025-01-10] MEDS ORDERED: SODIUM CHLORIDE FLUSH 0.9% 10 ML SYRINGE IVP PRN (23:14)
[2025-01-10] MEDS: SODIUM CHLORIDE FLUSH 0.9% 10 ML SYRINGE IVP SCH (23:50)
[2025-01-10] MEDS: SODIUM CHLORIDE 0.9% 1,000 ML IV SCH (23:50)
[2025-01-11] MEDS ORDERED: ATROPINE 0.4 MG/ML VIAL ONE (01:10)
[2025-01-11] MEDS: ATROPINE 0.4 MG/ML VIAL IVP ONE (01:13)
[2025-01-11] MEDS: SODIUM CHLORIDE IV STA (01:31)
[2025-01-11] MEDS: EPINEPHRINE IV STA (01:31)
[2025-01-11] MEDS ORDERED: SODIUM CHLORIDE IV STA (01:40)
[2025-01-11] MEDS ORDERED: EPINEPHRINE IV STA (01:40)
--- NOTE | 2025-01-11 01:41 | PROVIDER PROGRESS NOTE ---
Superintendent Overhead Distribution Note Superintendent Overhead Distribution Note Superintendent Overhead Distribution Note: 1:40 am Gris germaine was called, ER MD immediately responded, patient had HR of 25 but now mentating well, atropine was given, patient had sinus pause 30 seconds as per ER MD, Initial EKG in ER did not have concern for block, Spoke with ER MD who will initiate necessary steps for Epi drip and external pacing, I spoke with ER MD who shared with me that I will be getting call from transfer center for evaluation of fight transfer to ICU for pacemaker evaluation emergently
[2025-01-11] MEDS ORDERED: fentaNYL 100 MCG/2 ML VIAL ONE ×2 (01:47→02:21)
[2025-01-11] MEDS: fentaNYL 100 MCG/2 ML VIAL IVP SCH (01:48)
[2025-01-11 01:58] LABS: HCT - HEMATOCRIT 38.5 % (42.0-52.0); HGB - HEMOGLOBIN 12.0 g/dL (14.0-18.0); MEAN PLATELET VOLUME 13.2 fL (7.4-11.4); NRBC ABSOLUTE COUNT (AUTO) 0.00 x10^3/uL; NUCLEATED RED BLOOD CELLS AUTO 0.0 /100WBC; PLT - PLATELET COUNT 184 10^3/uL (130-450); RED CELL DISTRIBUTION WIDTH 12.3 % (12.0-15.0)
[2025-01-11 01:59] LABS: VBG BASE EXCESS -2.9 mmol/L (-2 - +2); VBG PCO2 36.3 mmHg (41-51); VBG PH 7.391 (7.31-7.41); VBG PO2 42.9 mmHg (25-47); VBG TOTAL CO2 23.3 mmol/L (24-29)
[2025-01-11] MEDS ORDERED: SODIUM CHLORIDE 0.9% 250 ML IV ONE (02:00)
[2025-01-11 02:09] LABS: ALT ALANINE AMINOTRANSFERASE 15.0 IU/L (10-60); AST ASPARTATE AMINOTRANSFERASE 11.0 IU/L (10-42); BUN - BLOOD UREA NITROGEN 24.0 mg/dL (6-20); CARBON DIOXIDE - CO2 24.0 mmol/L (21-32); CREATININE 1.1 mg/dL (0.6-1.3); GFR - MDRD 64.0 (>89)
[2025-01-11] MEDS: fentaNYL 100 MCG/2 ML VIAL IVP ONE ×2 (02:25→02:57)
[2025-01-11] MEDS: DOPamine 400 MG/250 ML 400 MG/250 ML BAG IV SCH (02:42)
[2025-01-11] MEDS ORDERED: fentaNYL 100 MCG/2 ML VIAL IVP SCH (03:00)
--- NOTE | 2025-01-11 03:07 | DISCHARGE TRANSFER SUMMARY ---
"Transfer Summary Admit Date: 01/10/25 Transfer Date: 01/11/25 Discharging Provider: Dr Natalia Argueta Code Status: Attempt Resuscitation Discharge Facility Name: [facility] Transfer to Location: ICU DIAGNOSES Admission Diagnoses: Syncope CAD Discharge Diagnoses with Status of Each Condition: Complete heart block and sick sinus syndrome, Cardiac arrest and ROSC achieved HPI History of Present Illness: See H and P dictated earlier by me , in brief patient is 84 y/o M with prior hx of Extensive CAD and multiple stending last stent in 05/2024 presented to our hospital for evaluation of Syncope, initial work up including EKG and labs were unremarkable, patient was admitted for cardiac monitoring, and Cardiac work up CONSULTS | PROCEDURES Consultations: [facility] ICU Dr Jael Schmidt and Dr Byron Haynes Cardiology Procedures: External Pacing Central line HOSPITAL COURSE Hospital Course: withing 4-5 hrs of admit, KARO herron was called and ER MD Dr Crabtree attended code blue and patient had ROSC after atropin and initial resuscitation , see Dr Crabtree's note for more details, patient had 30 second of Pause and perfusion deficts with low BP, and transferred to ICU and emergent transfer orders where EP and cardiology and supervisor grinding is available, see events below Summary of events 1:40 am Karo herron was called, ER MD immediately responded, patient had HR of 25 but now mentating well, atropine was given, patient had sinus pause 30 seconds as per ER MD, Initial EKG in ER did not have concern for block, Spoke with ER MD who will initiate necessary steps for Epi drip and external pacing, I spoke with ER MD who shared with me that I will be getting call from transfer center for evaluation of fight transfer to ICU for pacemaker evaluation emergently 1.50 am - Spoke with pharmacist in charge Amy , request for transfer is already in process, faxing clinical data to transfer center, 2:02am - I called transfer center on [phone] and requested updates I received call back from transfer center, spoke with production service manager at [facility], Dr Byron Haynes and explained emergent need of pacemaker Clinical course is updated to Integr[facility] Director 2:15 am i spoke with ER MD at [facility] who is bedside and working on Epi drip with External pacing, patient has pain with pacing and HR is 35 / min and External pacer is picking up pauses 2:24 am received call from Transfer Center [facility] who connected me to Dr Jael Schmidt and Updated need of ICU bed, Dr Schmidt requested clinical info vitals and active clinical course, since Dr Crabtree would be the best person to share clinical details at bedside and I have limited access of current active events, I requested transfer center to speak with pharmacist in charge at [facility] who will connect Dr Schmidt to Dr crabtree, patient is accepted at [facility], Aishwarya will notify me with updated 2;38 am Aishwarya updated me there is bed available at [place] at [facility], life flight is stand by, possible 30-40 min flight to [place]. 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 is critical care ICU service, accepting admitting MD is Dr Jael Schmidt 2:44 am , Spoke with fitter and turner Amy, who confirmed that patient has ICU accepting with room number at 232, 22 minutes away from flight Once flight is available then patient will be transferred to [facility], D/w fitter and turner Amy Patient has not received any Betablocker during this hospital stay ALLERGIES Allergies Allergy/AdvReac Type Severity Reaction Status Date / Time lobster Allergy Severe Hives Verified 01/10/25 18:58 pramipexole AdvReac Severe Hallucinati Verified 01/10/25 18:58 ons LAZ Inhibitors AdvReac Mild Cough Verified 01/10/25 18:58 MEDICATIONS Ambulatory Orders Medication Instructions Recorded Confirmed albuterol sulfate 90 mcg/actuation 1 - 2 puff inhalati on Q4HR PRN 05/02/24 10/22/24 aerosol inhaler (Ventolin HFA) Shortness Of Air/Wheezi ng ascorbic acid (vitamin C) 500 mg 500 mg PO QDAY 10/22/24 tablet cholecalciferol (vitamin D3) 25 50 mcg PO QDAY 5 10/22/24 mcg (1,000 unit) capsule donepezil 10 mg tablet 10 mg PO QDAY #90 tabs 05/0210/22/24 dutasteride 0.5 mg capsule 0.5 mg PO QDAY 05/02/2405/18 ferrous sulfate 325 mg (65 mg 325 mg PO QDAY 05/02/24 10/22/24 iron) tablet fexofenadine 180 mg tablet 180 mg PO QDAY 05/02/2405/18 loratadine 10 mg tablet 10 mg PO QDAY 05/02/2410/22 mecobalamin (vitamin B12) 1,000 1,000 mcg PO QDAY 01/1610/22/24 mcg chewable tablet tamsulosin 0.4 mg capsule 0.4 mg PO QPM 05/02/2410/22 zafirlukast 20 mg tablet 20 mg PO BID 05/02/24 carbidopa 25 mg-levodopa 100 mg 1 tab PO QPM #90 tabs 05/07/24 10/22/24 tablet (Sinemet) nitroglycerin 0.4 mg sublingual 0.4 mg sublingual Q5M PRN 05/29/24 10/22/24 tablet pantoprazole 40 mg tablet,delayed 40 mg PO QDAY 10/22/24 release rosuvastatin 10 mg tablet 10 mg PO QDAY #30 tabs 07/0110/22/24 duloxetine 30 mg capsule,delayed 30 mg PO QAM 07/17/24 10/22/24 release losartan 25 mg tablet 25 mg PO ONCE 07/17/2410/22 prazosin 2 mg capsule 6 mg PO QPM 07/17/24 5 scopolamine base 1 mg over 3 days 1 patch transdermal Q3D PRN 07/17/24 10/22/24 transdermal patch carvedilol 6.25 mg tablet 6.25 mg PO BID #30 tabs /3 10/22/24 clopidogrel 75 mg tablet 75 mg PO QDAY 08/21/2410/22 ondansetron 4 mg disintegrating 4 mg PO Q8H PRN nausea and 08/21/24 10/22/24 tablet vomiting #45 tabs fluticasone fur. 200 mcg-umeclid 1 inh inhalation QDAY #180 ea 12/08/24 62.5 mcg-vilant 25 mcg inhalat.powder (Trelegy Ellipta) LABS 01/11/25 01:12 01/11/25 01:12 TIME SPENT Time Spent in Discharge (Minutes): 55 Exam Exam Vital Signs: Vital Signs x48h Temp Pulse Pulse Pulse Resp BP BP 01/11/25 02:30 83 110/50 L 01/11/25 02:16 100/50 L 01/11/25 02:07 25 L 16 92/40 L 01/11/25 01:55 30 L 20 100/40 L 01/11/25 01:44 25 L 20 105/35 L 01/11/25 01:33 29 L 20 01/10/25 23:00 36.6 C 83 18 154/72 H 01/10/25 22:30 80 16 145/69 H 01/10/25 22:00 77 16 135/45 H 01/10/25 21:30 85 18 143/61 H 01/10/25 21:13 77 18 154/67 H 01/10/25 20:58 75 18 147/68 H Pulse Ox O2 Flow Rate 01/11/25 02:30 01/11/25 02:16 01/11/25 02:07 98 2 01/11/25 01:55 01/11/25 01:44 01/11/25 01:33 97 2 01/10/25 23:00 96 01/10/25 22:30 95 01/10/25 22:00 93 01/10/25 21:30 95 01/10/25 21:13 95 01/10/25 20:58 96 Due to critical nature of events, and being a telemedicine I did not conduct face to face exam as critical transfer is necessary and felt more important than physical exam where ER MD is actually present bedside at patient"
[2025-01-11 03:43] VITALS: BP 152/70; TEMP 98.8; O2SAT 97
[2025-01-11] MEDS ORDERED: NACL IV ONE (06:48)
[2025-01-11] MEDS ORDERED: EPINEPHRINE IV ONE (06:48)
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
[2025-01-11] MEDS ORDERED: CLOPIDOGREL 75 MG TABLET PO SCH (09:00)
[2025-01-11] MEDS ORDERED: PANTOPRAZOLE 40 MG TABLET PO SCH (09:00)
[2025-01-11] MEDS ORDERED: HEPARIN 5,000 UNIT/ML VIAL SUBQ SCH (09:00)
[2025-01-11] MEDS ORDERED: CARBIDOPA/LEVODOPA 25 MG/100 MG TABLET PO SCH (21:00)
[2025-01-11] MEDS ORDERED: TAMSULOSIN 0.4 MG CAPSULE PO SCH (21:00)
== END 2025-01-11 03:45 | disposition short-term general hospital (02) ==
LOC: ED 18:40 → MS2 18:40 → ICU 01-11 02:16
PROVIDERS: ADMIT Family Medicine; ATTEND Family Medicine
DX: Z79.02 Long term (current) use of antithrombotics/antiplatelets; I44.2 Atrioventricular block, complete; R55 Syncope and collapse; E78.5 Hyperlipidemia, unspecified; I10 Essential (primary) hypertension; I49.5 Sick sinus syndrome; I25.10 Atherosclerotic heart disease of native coronary artery without angina pectoris; I46.9 Cardiac arrest, cause unspecified; N40.0 Benign prostatic hyperplasia without lower urinary tract symptoms; Z95.5 Presence of coronary angioplasty implant and graft; Z87.891 Personal history of nicotine dependence; I25.2 Old myocardial infarction